=== PATIENT | male | born 1950 | race Caucasian/White ===

== ENCOUNTER → 2017-02-19 | Outpatient (CLI) | payer OTHER, MEDICAID | LOC: BHFA 09:00 | PROVIDERS: ATTEND Internal Medicine | DX: R06.00 Dyspnea, unspecified (principal); G47.30 Sleep apnea, unspecified ==

== ENCOUNTER → 2017-03-15 | Outpatient (CLI) | payer OTHER, MEDICAID ==
[~2017-03-15] MED LIST: REGADENOSON 0.4 MG/5 ML SYR IVP ONE
--- NOTE | 2017-03-15 16:41 | PDCARST ---
CAR Stress Test Results Type of Stress Test: Lexiscan stress test Indication: dyspnea on exertion Description of Procedure: After informed consent was obtained, pt was established to ECG, blood pressure, HR and oximetry monitoring. STRESS EKG AND HEMODYNAMIC DATA. Resting heart rate: 139 BPM. Resting ECG: AF RVR. Resting blood pressure: 140/80 mmHg. O2 saturation at rest: 92. Peak heart rate: 164 BPM. Peak blood pressure: 152/90 mmHg. Arrhythmias: AF RVR throughout. Symptoms: The patient experienced no typical symptoms of angina during stress or recovery. Stress/Infusion ECG: No change in rhythm with no significant ST/T wave changes. Stress/infusion O2 saturation: 96 Impression: 1) AF RVR in setting of holding BB > 24 hours. 2) pt declines admission for rate control Conclusion: 1) pt instructed to go home and take his Metoprolol succinate 100 mg at once. 2) await nuclear images
== END ==
LOC: FIMAGING 11:21
PROVIDERS: ATTEND Internal Medicine
DX: R06.00 Dyspnea, unspecified (principal); G47.30 Sleep apnea, unspecified
CPT/HCPCS: 78452; A9500; J2785

== ENCOUNTER 2017-05-03 21:07 | Inpatient (IN) | payer OTHER, MEDICAID ==
[2017-05-03] MEDS ORDERED: ONDANSETRON 4 MG/2 ML VIAL IVP ONE (21:43)
--- NOTE | 2017-05-03 21:45 | EDPHY ---
General - History Smoking Status: Never smoked Narrative: CHIEF COMPLAINT: Left leg pain HISTORY OF PRESENT ILLNESS: Patient complains of 3 days history of left lower leg pain. This started in the jolley and has spread significantly. It was mild at 1st. Now severe. Difficulty ambulating. Significant pressure. No numbness or tingling. No fever chills. No generalized malaise. No trauma or injury. He does take Coumadin from diagnosis of atrial fibrillation. He has got no bleeding from any site. No recent travel, trauma or surgery. No chest pain. No shortness of breath. No other associated complaints or modifying factors. REVIEW OF SYSTEMS: Ten systems reviewed and are negative unless otherwise noted in the HPI PCP: Dr. Moore SPECIALISTS: Dr. Lopez, cardiology PAST MEDICAL HISTORY: Diabetes insulin-dependent, hypertension, AFib, gout SOCIAL HISTORY: Nonsmoker. No alcohol or drug use. FAMILY HISTORY: Noncontributory EXAMINATION General Appearance: Alert, no distress Head: normocephalic, atraumatic Eyes: Pupils equal and round, no conjunctival pallor or injection ENT, Mouth: Mucous membranes moist Neck: Normal inspection, supple, non-tender Respiratory: Lungs are clear to auscultation. No wheezing, rhonchi or crackles Cardiovascular: Regular rate and rhythm. No murmur. Right DP pulses 2+. Left DP pulse 1 +. PT pulses symmetric. Gastrointestinal: Obese abdomen is soft and nondistended. Nontender. Neurological: A&O, nonfocal, normal light sensation on the top of the left foot. Strength is symmetric in the ankles and feet. Skin: Warm and dry. Significant cellulitis the left anterior jolley. There is some petechiae and purpura. No necrosis. No subcutaneous emphysema. Extremities: Significant tenderness of the left anterior jolley and lateral leg. No calcaneus tenderness. Range of motion is intact but painful. There is moderate edema to the left lower leg. Psychiatric: Mood and affect normal DIFFERENTIAL DIAGNOSES: Including but not limited to DVT, cellulitis, compartment syndrome, osteomyelitis, PVD MDM: 9:44 p.m. Left lower leg pain of 3 days duration. Examination suggest DVT versus cellulitis. Left DP pulses slightly less on the right but it is palpable. The foot is warm to the touch and not all cold. No paresthesia or anesthesia. No evidence of compartment syndrome. Laboratory studies ordered. Pain medicine ordered. Ultrasound ordered. X-ray ordered. He does not meet SIRS criteria. He is in pain but in no acute distress. 10:45 p.m. Laboratory studies revealed leukocytosis with elevated CRP. Mild electrolyte abnormalities. Blood glucose is elevated greater than 200. The unofficial interpretation from the Doppler studies negative for DVT and suggest cellulitis. The official interpretation is pending. Given the extensiveness of this, his pain control and his resources, the patient will need inpatient treatment for this. He is agreeable to this. Hospitalist has been paged. 11:01 p.m. Contacted by radiologist Dr. Beltran. No DVT on the ultrasound. There is left inguinal lymphadenopathy and lower extremity edema. 11:05 p.m. Case discussed with hospitalist Dr. Nolasco. He will admit the patient to his service. The patient is admitted to inpatient status to a floor bed. I discussed this with the patient and he is agreeable with stain. I informed him that we have ordered IV vancomycin. His pain has never improved, thus I have ordered IV Dilaudid. Vital signs remained stable. Admitted stable condition (Gelacio Reynoso) I have evaluated and participated in the management of this patient. My co- signature indicates that I have reviewed this chart and that I agree with the findings and the plan of care as documented. My personal history and physical findings include: 66-year-old male with history of diabetes. Patient reports 3 days of left leg pain and swelling. He has not been aware of fever. On examination lungs are clear, heart is regular. Abdomen is obese, soft and nontender. Left lower extremity with tenderness, edema, warmth, and erythema that extends along the anterolateral lower leg. There is also ecchymosis along the lateral left jolley. He has full active range of motion of this leg but it is painful for him to range his knee and ankle. Dorsalis pedis pulses are 1+ bilaterally. Physical findings are consistent with cellulitis. I do not suspect a deeper infection such as abscess or necrotizing fasciitis. Plain films do not suggest osteomyelitis. He is not febrile or otherwise ill appearing. I do not suspect vascular obstruction. He does have signs of chronic venous stasis in both lower extremities. He has been unable to adequately care for himself at home due to leg pain making it difficult for him to walk. He will be admitted for IV antibiotics. (Jessica Callejas) - Objective Vital Signs: Initial Vital Signs Temperature (C) 36.4 C 05/03/17 21:10 Heart Rate 70 05/03/17 21:10 Respiratory Rate 20 05/03/17 21:10 Blood Pressure 152/91 H 05/03/17 21:10 O2 Sat (%) 93 05/03/17 21:10 O2 Delivery Mode Room Air Allergies/Adverse Reactions: No Known Allergies Allergy (Verified 05/03/17 21:13) Home Medications: Medication Instructions Recorded Febuxostat [ULORIC] 40 mg PO DAILY@182901/02/15 Linagliptin [Tradjenta] 5 mg PO DAILY@182901/02/15 glipiZIDE [Glucotrol 5 mg] 10 mg PO BIDMEAL 01/02/15 Tamsulosin HCl [Flomax 0.4 MG (*)] 0.4 mg PO DAILY@182905/21/16 FENOFIBRATE 160 mg PO DAILY@182911/22/16 LORazepam [Ativan (*)] 1 mg PO HS PRN 11/22/16 Aspirin [Aspirin 325 mg (*)] 325 mg PO DAILY@182905/04/17 Atorvastatin Calcium [Lipitor 10 10 mg PO DAILY@182905/04/17 mg (*)] Fluocinonide 0.05% [Lidex 0.05% 1 kristi TP DAILY@182905/04/17 Cream (RX)] Metoprolol Succinate Xr [Toprol Xl 100 mg PO DAILY@182905/04/17 100 mg (*)] Potassium Cl [Klor-Con] 10 meq PO DAILY@182905/04/17 Warfarin Sodium [Coumadin 2.5MG 2.5 mg PO Q2D@182905/04/17 (*)] Warfarin Sodium [Coumadin 5MG (*)] 5 mg PO Q2D@182905/04/17 amLODIPine BESYLATE [Norvasc 5 mg 5 mg PO DAILY@182905/04/17 (*)] predniSONE 20 mg PO DAILY PRN 05/04/17 Laboratory Results: Laboratory Results 05/03/17 21:35 05/03/17 21:35 Medications Given: Acetaminophen (Tylenol) 650 mg PO Q4HRS PRN PRN Reason: Pain, Mild/Fever, Can Take PO Stop: 10/30/17 23:06 Last Admin: 05/05/17 08:02 Dose: 650 mg Amlodipine Besylate (Norvasc) 5 mg PO DAILY@1829 [facility] Stop: 10/31/17 18:29 Last Admin: 05/04/17 19:47 Dose: 5 mg Aspirin (Aspirin) 325 mg PO DAILY@1829 [facility] Stop: 10/31/17 18:29 Last Admin: 05/04/17 19:46 Dose: 325 mg Atorvastatin Calcium (Lipitor) 10 mg PO DAILY@1829 [facility] Stop: 10/31/17 18:29 Last Admin: 05/04/17 19:47 Dose: 10 mg Fluocinonide (Lidex 0.05% Cream) 1 kristi TP DAILY@1829 [facility] Stop: 10/31/17 18:29 Last Admin: 05/04/17 19:48 Dose: Not Given Glipizide (Glucotrol) 10 mg PO BIDMEAL [facility] Stop: 10/31/17 17:59 Last Admin: 05/05/17 08:00 Dose: 10 mg Vancomycin HCl 1.5 gm/ (Dextrose) 250 mls @ 166.667 mls/hr IV Q12H [facility] Stop: 06/03/17 10:59 Last Admin: 05/04/17 23:53 Dose: 250 mls Lorazepam (Ativan) 1 mg PO HS PRN PRN Reason: Anxiety Stop: 10/31/17 13:37 Last Admin: 05/04/17 16:43 Dose: 1 mg Metoprolol Succinate (Toprol Xl) 100 mg PO DAILY@1829 [facility] Stop: 10/31/17 18:29 Last Admin: 05/04/17 19:47 Dose: 100 mg Miscellaneous Medication (Febuxostat [Uloric]) 40 mg PO DAILY@1829 [facility] Stop: 10/31/17 18:29 Last Admin: 05/04/17 19:49 Dose: Not Given Miscellaneous Medication (Linagliptin [Tradjenta]) 5 mg PO DAILY@1829 [facility] Stop: 10/31/17 18:29 Last Admin: 05/04/17 19:50 Dose: Not Given Miscellaneous Medication (Fenofibrate [Fenofibrate]) 160 mg PO DAILY@1829 [facility] Stop: 10/31/17 18:29 Last Admin: 05/04/17 19:50 Dose: Not Given Oxycodone HCl (Oxycodone Ir) 5 - 10 mg PO Q4HRS PRN PRN Reason: Pain, Severe Able to Take PO Stop: 05/14/17 03:34 Last Admin: 05/05/17 04:54 Dose: 10 mg Potassium Chloride (Klor-Con) 10 meq PO DAILY@1830 [facility] Stop: 10/31/17 18:29 Last Admin: 05/04/17 19:47 Dose: 10 meq Tamsulosin HCl (Flomax) 0.4 mg PO DAILY@183 [facility] Stop: 10/31/17 18:29 Last Admin: 05/04/17 19:48 Dose: 0.4 mg Warfarin Sodium (Coumadin) 2.5 mg PO Q2D@1829 [facility] Stop: 10/31/17 18:29 Last Admin: 05/04/17 19:46 Dose: 2.5 mg Discontinued Medications Enoxaparin Sodium (Lovenox) 40 mg SC DAILY [facility] Stop: 10/31/17 08:59 Last Admin: 05/04/17 08:54 Dose: Not Given Furosemide (Lasix Injection) 40 mg IVP ONCE ONE Stop: 05/04/17 20:01 Last Admin: 05/05/17 07:55 Dose: Not Given Hydromorphone HCl (Dilaudid) 1 mg IVP EDNOW ONE Stop: 05/03/17 23:06 Last Admin: 05/03/17 23:21 Dose: 1 mg Vancomycin/Sodium Chloride (Vancomycin 1 Gm (Premix)) 250 mls @ 250 mls/hr IV EDNOW ONE PRN Reason: Protocol Stop: 05/03/17 23:56 Last Admin: 05/03/17 23:19 Dose: 250 mls Sodium Chloride (Ns) 1,000 mls @ 250 mls/hr IV ONCE ONE Stop: 05/04/17 03:06 Last Admin: 05/04/17 00:52 Dose: 1,000 mls Influenza Virus Vaccine Quadrival (Fluarix Quad [id number]) 0.5 ml IM .ONCE ONE Stop: 05/04/17 08:41 Last Admin: 05/04/17 09:44 Dose: 0.5 ml Insulin Human Lispro (Humalog Lispro) 0 unit SC TIDMEAL [facility] PRN Reason: Protocol Stop: 10/31/17 07:59 Last Admin: 05/04/17 15:02 Dose: Not Given Morphine Sulfate (Morphine) 6 mg IVP EDNOW ONE Stop: 05/03/17 21:44 Last Admin: 05/03/17 21:48 Dose: 6 mg Ondansetron HCl (Zofran) 4 mg IVP EDNOW ONE Stop: 05/03/17 21:44 Last Admin: 05/03/17 21:48 Dose: 4 mg Potassium Chloride (Klor-Con) 60 meq PO ONCE ONE Stop: 05/04/17 03:14 Last Admin: 05/04/17 03:22 Dose: 60 meq Departure - Departure Disposition: [facility] Inpatient Acute Clinical Impression: Cellulitis of left lower leg Condition: Good
[2017-05-03 21:55] LABS: % IMMATURE GRANULYOCYTES 0.7 % (0.0-1.1); ABSOLUTE IMMATURE GRANULOCYTES 0.09 10^3/uL (0.00-0.10); ADD DIFF? NO; ADD MORPH? NO; ADD SCAN? NO; ATYPICAL LYMPHOCYTE FLAG 0 (0-99); FRAGMENT RBC FLAG 0 (0-99); HEMATOCRIT 49.9 % (40.0-51.0); HEMOGLOBIN 17.4 g/dL (13.7-17.5); LEFT SHIFT FLG 10 (0-99); LIPEMIA HEMOLYSIS FLAG 90 (0-99); MEAN CELL HEMOGLOBIN 30.3 pg (27.9-34.1); MEAN CELL HEMOGLOBIN CONCENTR. 34.9 g/dL (32.4-36.7); MEAN CELL VOLUME 86.9 fL (81.5-99.8); MEAN PLATELET VOLUME 9.7 fL (8.7-11.7); PLATELET CLUMPS FLAG 10 (0-99); PLATELET COUNT 289 10^3/uL (150-400); RED BLOOD CELL COUNT 5.74 10^6/uL (4.40-6.38); RED CELL DISTRIBUTION WIDTH 14.7 % (11.5-15.2)
[2017-05-03 22:02] LABS: ANION GAP 11 mEq/L (8-16); C-REACTIVE PROTEIN 67.7 mg/L (<10.0); CALCIUM 9.4 mg/dL (8.5-10.4); CARBON DIOXIDE 27 mEq/l (22-31); CHLORIDE 89 mEq/L (97-110); CREATININE 1.3 mg/dL (0.7-1.3); GLOMERULAR FILTRATION RATE 55; GLUCOSE 213 mg/dL (70-100); POTASSIUM 3.3 mEq/L (3.5-5.2); SODIUM 127 mEq/L (134-144)
[2017-05-03 22:17] LABS: SEDIMENTATION RATE 7 MM/HR (0-20)
[2017-05-03] MEDS ORDERED: VANCOMYCIN HCL/NORMAL SALINE 250 ML IV ONE (22:57)
[2017-05-03] MEDS ORDERED: HYDROmorphONE/DILAUDID 1 MG/ML INJ IVP ONE (23:05)
[2017-05-03] MEDS ORDERED: ONDANSETRON 4 MG/2 ML VIAL IVP PRN (23:07)
[2017-05-03] MEDS ORDERED: ONDANSETRON DISINTEGRATING 4 MG TAB PO PRN (23:07)
[2017-05-03] MEDS ORDERED: NS 1,000 ML IV ONE (23:07)
[2017-05-04] MEDS ORDERED: D50W 25 GM/50 ML VIAL IVP PRN (00:05)
[2017-05-04] MEDS ORDERED: PARAMETERS MISC PRN (00:05)
--- NOTE | 2017-05-04 01:37 | PDGENHP ---
History and Physical - Chief Complaint Leg pain - History of Present Illness 66 yo M w/ obesity, AF, HTN, gout, DM2 presents with leg pain. Patient reports he first noticed left leg redness about three days ago. This progressed and the redness moved up his leg so he decided to come to the emergency room. This is his first diabetic foot infection; he tries to take good care of his feet. However, he has not checked his blood sugar in several weeks. His last A1c in our system was 7.4 in November. He denies fevers, chills currently. History Information - Allergies/Home Medication List Allergies/Adverse Reactions: No Known Allergies Allergy (Verified 05/03/17 21:13) Home Medications: Febuxostat [ULORIC] 40 mg PO DAILY 01/02/15 [Last Taken 11/19/16] Linagliptin [Tradjenta] 5 mg PO DAILY 01/02/15 [Last Taken 11/21/16] glipiZIDE [Glucotrol 5 mg] 10 mg PO BID 01/02/15 [Last Taken 11/19/16] Tamsulosin HCl [Flomax 0.4 MG (*)] 0.4 mg PO HS 05/21/16 [Last Taken 05/21/16] Atorvastatin Calcium [Lipitor 40 mg (*)] 40 mg PO HS 11/22/16 [Last Taken ] FENOFIBRATE 160 mg PO DAILY 11/22/16 [Last Taken 11/19/16] LORazepam [Ativan (*)] 1 mg PO HS PRN 11/22/16 [Last Taken Unknown] METOPROLOL SUCCINATE 100 mg PO DAILY 11/22/16 [Last Taken 11/19/16] Potassium Chloride 10 meq PO DAILY 11/22/16 [Last Taken 11/22/16] I have personally reviewed and updated: family history, medical history - Past Medical History diabetes type 2, hypertension, hyperlipidemia Additional medical history: BPH. chronic pain/continuous opiate use and dependency. gout - Surgical History Reports: no pertinent surgical hx - Family History Positive for: CAD (father with a fib and cad) - Social History Smoking Status: Never smoked Additional social history: lives alone, unemployed, has brother at bedside involved in his care Review of Systems Review of Systems: ROS: 10pt was reviewed & negative except for what was stated in HPI & below Physical Exam Physical Exam: Temp Pulse Resp BP Pulse Ox 36.4 C 55 L 16 112/57 L 95 05/03/17 21:10 05/03/17 23:23 05/03/17 23:23 05/03/17 23:23 05/03/17 23:23 Constitutional: no apparent distress, obese Eyes: PERRL, EOMI Ears, Nose, Mouth, Throat: moist mucous membranes, no oral mucosal ulcers Cardiovascular: regular rate and rhythym, no murmur, rub, or gallop Respiratory: no respiratory distress, no rales or rhonchi Gastrointestinal: normoactive bowel sounds, soft, non-tender abdomen Skin: warm, other (Erythema and warmth extending up LLE to upper jolley; small ulceration dorsal aspect L 2nd toe) Musculoskeletal: full muscle strength, no muscle tenderness Neurologic: AAOx3, CN II-XII Intact Psychiatric: interacting appropriately, not anxious Lab Data & Imaging Review 05/03/17 21:35 05/03/17 21:35 WBC 13.23 10^3/uL (3.80-9.50) H 05/03/17 21:35 RBC 5.74 10^6/uL (4.40-6.38) 05/03/17 21:35 Hgb 17.4 g/dL (13.7-17.5) 05/03/17 21:35 Hct 49.9 % (40.0-51.0) 05/03/17 21:35 MCV 86.9 fL (81.5-99.8) 05/03/17 21:35 MCH 30.3 pg (27.9-34.1) 05/03/17 21:35 MCHC 34.9 g/dL (32.4-36.7) 05/03/17 21:35 RDW 14.7 % (11.5-15.2) 05/03/17 21:35 Plt Count 289 10^3/uL (150-400) 05/03/17 21:35 MPV 9.7 fL (8.7-11.7) 05/03/17 21:35 Neut % (Auto) 72.0 % (39.3-74.2) 05/03/17 21:35 Lymph % (Auto) 15.0 % (15.0-45.0) 05/03/17 21:35 [place] % (Auto) 10.9 % (4.5-13.0) 05/03/17 21:35 Eos % (Auto) 0.9 % (0.6-7.6) 05/03/17 21:35 Baso % (Auto) 0.5 % (0.3-1.7) 05/03/17 21:35 Nucleat RBC Rel Count 0.0 % (0.0-0.2) 05/03/17 21:35 Absolute Neuts (auto) 9.54 10^3/uL (1.70-6.50) H 05/03/17 21:35 Absolute Lymphs (auto) 1.98 10^3/uL (1.00-3.00) 05/03/17 21:35 Absolute Monos (auto) 1.44 10^3/uL (0.30-0.80) H 05/03/17 21:35 Absolute Eos (auto) 0.12 10^3/uL (0.03-0.40) 05/03/17 21:35 Absolute Basos (auto) 0.06 10^3/uL (0.02-0.10) 05/03/17 21:35 Absolute Nucleated RBC 0.00 10^3/uL (0-0.01) 05/03/17 21:35 Immature Gran % 0.7 % (0.0-1.1) 05/03/17 21:35 Immature Gran # 0.09 10^3/uL (0.00-0.10) 05/03/17 21:35 ESR 7 MM/HR (0-20) 05/03/17 21:35 Sodium 127 mEq/L (134-144) L 05/03/17 21:35 Potassium 3.3 mEq/L (3.5-5.2) L 05/03/17 21:35 Chloride 89 mEq/L (97-110) L 05/03/17 21:35 Carbon Dioxide 27 mEq/l (22-31) 05/03/17 21:35 Anion Gap 11 mEq/L (8-16) 05/03/17 21:35 BUN 25 mg/dL (7-23) H 05/03/17 21:35 Creatinine 1.3 mg/dL (0.7-1.3) 05/03/17 21:35 Estimated GFR 55 05/03/17 21:35 Glucose 213 mg/dL (70-100) H 05/03/17 21:35 Calcium 9.4 mg/dL (8.5-10.4) 05/03/17 21:35 C-Reactive Protein 67.7 mg/L (<10.0) H 05/03/17 21:35 Imaging Review: XR LLE without evidence of OM. Assessment & Plan Assessment: 66 yo M w/ DM, HTN, gout, and obesity presents with LLE cellulitis. Plan: 1. LLE cellulitis - WBC 13 but no evidence of sepsis; XR without evidence of OM. This is patient's first diabetic foot infection. I suspect small ulceration on dorsal aspect of 2nd toe may have been entry point for infection. DVT U/S without evidence of clot. - Vancomycin IV for now, monitor for improvement 2. DM - Takes only oral agents as an outpatient. Last A1c in our system 7.4 in November. Will manage with SSI for now. 3. HTN - Takes metoprolol and amlodipine as an outpatient. 4. AF - On metoprolol and warfarin for anticoagulation. - Monitor daily INR while on antibiotics 5. Gout - Takes febuxostat; no evidence of acute flair 6. Obesity - BMI 40; takes statin daily. Diet - Regular Code - Full Ppx - LMWH Dispo - Admit to observation status
[2017-05-04] MEDS ORDERED: POTASSIUM CL 20 MEQ TAB PO ONE (03:13)
[2017-05-04] MEDS: ACETAMINOPHEN 325 MG TAB PO PRN (03:26)
[2017-05-04] MEDS: oxyCODONE IR 5 MG TAB PO PRN ×4 (04:56→19:45)
[2017-05-04 05:54] LABS: % IMMATURE GRANULYOCYTES 0.9 % (0.0-1.1); ADD DIFF? NO; ADD MORPH? NO; ADD SCAN? NO; ATYPICAL LYMPHOCYTE FLAG 0 (0-99); FRAGMENT RBC FLAG 0 (0-99); HEMATOCRIT 48.1 % (40.0-51.0); HEMOGLOBIN 16.2 g/dL (13.7-17.5); LEFT SHIFT FLG 0 (0-99); LIPEMIA HEMOLYSIS FLAG 80 (0-99); MEAN CELL HEMOGLOBIN 30.5 pg (27.9-34.1); MEAN CELL HEMOGLOBIN CONCENTR. 33.7 g/dL (32.4-36.7); MEAN CELL VOLUME 90.4 fL (81.5-99.8); PLATELET CLUMPS FLAG 0 (0-99); PLATELET COUNT 230 10^3/uL (150-400); RED BLOOD CELL COUNT 5.32 10^6/uL (4.40-6.38); RED CELL DISTRIBUTION WIDTH 15.3 % (11.5-15.2)
[2017-05-04 06:10] LABS: ANION GAP 11 mEq/L (8-16); CALCIUM 8.9 mg/dL (8.5-10.4); CARBON DIOXIDE 32 mEq/l (22-31); CHLORIDE 92 mEq/L (97-110); CREATININE 1.4 mg/dL (0.7-1.3); GLOMERULAR FILTRATION RATE 51; GLUCOSE 155 mg/dL (70-100); POTASSIUM 4.1 mEq/L (3.5-5.2); SODIUM 135 mEq/L (134-144)
[2017-05-04 06:22] LABS: INR 2.85 (0.83-1.16); PROTIME(PATIENT) 30.3 SEC (12.0-15.0)
[2017-05-04] MEDS: INSULIN LISPRO 100 UNIT/ML SC SCH ×2 (08:30→15:02)
[2017-05-04] MEDS ORDERED: FLU VACC QS 2017-18 (3YR+)/PF 0.5 ML SYR (FLUARIX QUAD) IM ONE (08:40)
[2017-05-04] MEDS ORDERED: ENOXAPARIN 40 MG/0.4 ML SYR SC SCH (09:00)
--- NOTE | 2017-05-04 10:31 | ASMTCASEMG ---
Living Arrangements What is your living Answers: Alone arrangement? Who do you live with? Type Of Residence What kind of residence do Answers: House you live in? Discharge Plan Comments Coordination Status Comments Notes: Patient is a 66yo single male with diabetes experiencing his first diabetic foot infection. Patient normally takes good care of his feet but has not checked his blood sugar in several weeks. No therapies have been ordered yet. Patient is single and lives alone. D/C needs unclear at this time. CM will follow. Date Signed: 05/04/2017 10:31 AM Electronically Signed By:Sneahl Ordaz LCSW
[2017-05-04] MEDS: VANCOMYCIN 1.5 GM in D5W 250 ML IV SCH ×2 (11:44→23:53)
[2017-05-04] MEDS ORDERED: predniSONE 20 MG TAB PO PRN (13:38)
--- NOTE | 2017-05-04 14:13 | HOSPPROG ---
Hospitalist Progress Note Assessment/Plan: DIAGNOSES: -left leg pain with erythema, significant ecchymoses, increased edema: There is stasis dermatitis, there is probably some cellulitis, but there is also a lot of deep soft tissue edema and tenderness and significant ecchymoses raising question of deep soft tissue infection or other process. Ultrasound negative for clot so doubt phlegmasia cerulea dulens. No palpable abscess, nothing overtly necrotic visible from the surface. Would be concerned about possible myositis or other significant deep soft tissue process and will need to assess for that starting with imaging studies -chronic bilateral leg edema and stasis pigmentation suspect this is due to pulmonary hypertension from his obesity, pulmonary pressures not mentioned on echo 6 months ago -diabetes mellitus type 2 -chronic gout, stable at this time on meds -chronic AFib, rate controlled and on anticoagulant with good INR -chronic kidney disease is pretty much at his baseline of 1.2-1.4; estimated GFR 50 PLANS: -continue current antibiotics with cultures pending -MRI of his leg today -elevation of legs, low-salt diet, and will begin diuresis with Lasix SUBJECTIVE: Ongoing pain in left calf ankle and foot No other symptoms OBJECTIVE Vitals reviewed: So far stable without fever Exam: alert oriented looks fairly uncomfortable skin warm dry color ok resps not labored lungs clear BSs heart regular abd soft nondistended nontender, bowel sounds present limbs right leg has some pitting edema from the knee down to the distal foot with some mild stasis pigmentation in the mid calf but nothing acute; left leg with much more significant edema from the knee down to the distal foot, with some acute stasis dermatitis and symptom acute acute appearing confluent erythema on the lateral aspect of the ankle and the dorsum of the foot suggesting possible cellulitis, and there is significant deep appearing ecchymosis along the lateral aspect of the calf top to bottom as well is in toes 2 through 4. There is severe tenderness in the calf soft tissues no definite fluctuance but this is a very edematous leg and deep fluctuance could be missed. There is nothing overtly necrotic visible externally. iv site ok Creatinine up slightly to 1.4 otherwise lab stable; on review of his lab draws over the past couple of years his baseline is 1.2-1.4 Objective: Vital Signs Temp Pulse Resp BP Pulse Ox 36.8 C 56 L 16 117/85 H 92 05/04/17 11:49 05/04/17 11:49 05/04/17 11:49 05/04/17 11:49 05/04/17 11:49 Laboratory Results 05/04/17 04:45 05/04/17 04:45 05/03/17 05/04/17 05/05/17 06:59 06:59 06:59 Intake Total 1200 Output Total 850 Balance 350 PT 30.3 SEC (12.0-15.0) H 05/04/17 04:45 INR 2.85 (0.83-1.16) H 05/04/17 04:45 - Time Spent With Patient Time Spent with Patient: greater than 35 minutes Time Spent with Patient: Greater than 35 minutes spent on this patients care, greater than 50% of time spent counseling, educating, and coordinating care regarding the above mentioned plan. ICD10 Worksheet Patient Problems: Problems Problem Status Onset Cellulitis of left lower leg Acute Atrial fibrillation Acute Dehydration Acute Elevated troponin Acute Hyponatremia Acute Renal failure Acute
[2017-05-04] MEDS ORDERED: FUROSEMIDE 40 MG/4 ML VIAL IVP ONE ×2 (14:25→20:00)
[2017-05-04] MEDS: LORazepam 1 MG TAB PO PRN (16:43)
[2017-05-04] MEDS ORDERED: GADOBUTROL 10 ML VIAL IVP ONE ×2 (16:54→18:14)
[2017-05-04] MEDS ORDERED: NON-FORMULARY NEW DRUG (Linagliptin [Tradjenta] 5 MG) PO SCH (18:30)
[2017-05-04] MEDS ORDERED: NON-FORMULARY NEW DRUG (Fenofibrate [Fenofibrate] 160 MG) PO SCH (18:30)
[2017-05-04] MEDS ORDERED: WARFARIN SODIUM 2.5 MG TAB PO SCH (18:30)
[2017-05-04] MEDS: glipiZIDE 5 MG TAB PO SCH (19:46)
[2017-05-04] MEDS: ASPIRIN 325 MG TAB PO SCH (19:46)
[2017-05-04] MEDS: amLODIPine BESYLATE 5 MG TAB PO SCH (19:47)
[2017-05-04] MEDS: POTASSIUM CL 10 MEQ TAB PO SCH (19:47)
[2017-05-04] MEDS: METOPROLOL SUCCINATE XR 100 MG TAB PO SCH (19:47)
[2017-05-04] MEDS: ATORVASTATIN CALCIUM 10 MG TAB PO SCH (19:47)
[2017-05-04] MEDS: FLUOCINONIDE 0.05% 15 GM CREAM TP SCH (19:48)
[2017-05-04] MEDS: TAMSULOSIN HCL 0.4 MG CAP PO SCH (19:48)
[2017-05-04] MEDS: NON-FORMULARY NEW DRUG (Febuxostat [Uloric] 40 MG) PO SCH (19:49)
[2017-05-04] MEDS: FENOFIBRATE 160 MG PO SCH (19:50)
[2017-05-04] MEDS: (Linagliptin [Tradjenta] 5 MG) PO SCH (19:50)
[2017-05-05] MEDS: oxyCODONE IR 5 MG TAB PO PRN ×5 (04:54→23:17)
[2017-05-05 05:54] LABS: % IMMATURE GRANULYOCYTES 0.7 % (0.0-1.1); ABSOLUTE IMMATURE GRANULOCYTES 0.08 10^3/uL (0.00-0.10); ADD DIFF? NO; ADD MORPH? NO; ADD SCAN? NO; ATYPICAL LYMPHOCYTE FLAG 0 (0-99); FRAGMENT RBC FLAG 0 (0-99); HEMATOCRIT 47.8 % (40.0-51.0); HEMOGLOBIN 15.8 g/dL (13.7-17.5); LEFT SHIFT FLG 0 (0-99); LIPEMIA HEMOLYSIS FLAG 80 (0-99); MEAN CELL HEMOGLOBIN 30.7 pg (27.9-34.1); MEAN CELL HEMOGLOBIN CONCENTR. 33.1 g/dL (32.4-36.7); MEAN PLATELET VOLUME 9.3 fL (8.7-11.7); PLATELET CLUMPS FLAG 0 (0-99); PLATELET COUNT 246 10^3/uL (150-400); RED BLOOD CELL COUNT 5.14 10^6/uL (4.40-6.38); RED CELL DISTRIBUTION WIDTH 15.2 % (11.5-15.2)
[2017-05-05 06:00] LABS: INR 3.02 (0.83-1.16); PROTIME(PATIENT) 31.7 SEC (12.0-15.0)
[2017-05-05] MEDS: glipiZIDE 5 MG TAB PO SCH ×2 (08:00→17:35)
[2017-05-05] MEDS: ACETAMINOPHEN 325 MG TAB PO PRN ×4 (08:02→23:17)
--- NOTE | 2017-05-05 08:48 | PDMN ---
Medical Necessity Medical necessity: Change to IP, as of 05/05/17, per MD; los >2 mn for ongoing management/tx of L leg pain w/erythema, significant ecchymosis & increased edema ; admit for ongoing inpt care, IV abx & Lasix; comorbid chronic bilateral leg edema & stasis pigmentation r/t pulmonary htn, DM, AFIB, CKD; per progress note & order 05/05/17
[2017-05-05] MEDS: VANCOMYCIN 1.5 GM in D5W 250 ML IV SCH ×2 (12:12→23:14)
[2017-05-05] MEDS ORDERED: POLYETHYLENE GLYCOL 3350 17 GM PKT PO PRN (17:06)
[2017-05-05] MEDS ORDERED: BISACODYL 10 MG SUPP PR PRN (17:06)
[2017-05-05] MEDS ORDERED: MAGNESIUM HYDROXIDE 30 ML UDCUP PO PRN (17:06)
[2017-05-05] MEDS ORDERED: LACTULOSE 20 GM/30 ML UDCUP PO PRN (17:06)
[2017-05-05] MEDS ORDERED: WARFARIN SODIUM 2.5 MG TAB PO ONE ×2 (17:30→18:30)
[2017-05-05] MEDS: amLODIPine BESYLATE 5 MG TAB PO SCH (17:35)
[2017-05-05] MEDS: POTASSIUM CL 10 MEQ TAB PO SCH (17:35)
[2017-05-05] MEDS: ATORVASTATIN CALCIUM 10 MG TAB PO SCH (17:35)
[2017-05-05] MEDS: METOPROLOL SUCCINATE XR 100 MG TAB PO SCH (17:35)
[2017-05-05] MEDS: ASPIRIN 325 MG TAB PO SCH (17:35)
[2017-05-05] MEDS: TAMSULOSIN HCL 0.4 MG CAP PO SCH (17:36)
[2017-05-05] MEDS: NON-FORMULARY NEW DRUG (Febuxostat [Uloric] 40 MG) PO SCH (17:39)
[2017-05-05] MEDS: FENOFIBRATE 160 MG PO SCH (17:40)
[2017-05-05] MEDS: FLUOCINONIDE 0.05% 15 GM CREAM TP SCH (17:40)
[2017-05-05] MEDS: (Linagliptin [Tradjenta] 5 MG) PO SCH (17:41)
--- NOTE | 2017-05-05 17:43 | HOSPPROG ---
Hospitalist Progress Note Assessment/Plan: DIAGNOSES: -acute myositis and cellulitis of left leg without evidence of abscess or osteomyelitis, diabetic foot infection -chronic bilateral leg edema and stasis pigmentation suspect this is due to pulmonary hypertension from his obesity, pulmonary pressures not mentioned on echo 6 months ago -diabetes mellitus type 2 -chronic gout, stable at this time on meds -chronic AFib, rate controlled and on anticoagulant with good INR -chronic kidney disease is pretty much at his baseline of 1.2-1.4; estimated GFR 50 PLANS: -continue current antibiotics -elevation of legs, low-salt diet, and will begin diuresis with Lasix -follow renal function closely as he is diabetic nephropathy and is on vancomycin -if renal function remains stable will begin some diuresis to try to speed recovery from his infection -INR has increased to 3 and will decrease his Coumadin dose slightly and follow closely SUBJECTIVE: Ongoing pain in left calf ankle and foot really unchanged from yesterday No other symptoms OBJECTIVE Vitals reviewed: So far stable without fever Exam: alert oriented looks fairly uncomfortable skin warm dry color ok resps not labored lungs clear BSs heart regular abd soft nondistended nontender, bowel sounds present limbs right leg has some pitting edema from the knee down to the distal foot with some mild stasis pigmentation in the mid calf but nothing acute; left leg with much more significant edema from the knee down to the distal foot, with some acute stasis dermatitis and symptom acute acute appearing confluent erythema on the lateral aspect of the ankle and the dorsum of the foot suggesting possible cellulitis, and there is significant deep appearing ecchymosis along the lateral aspect of the calf top to bottom as well is in toes 2 through 4. There is severe tenderness in the calf soft tissues no definite fluctuance but this is a very edematous leg and deep fluctuance could be missed. There is nothing overtly necrotic visible externally. iv site ok Objective: Vital Signs Temp Pulse Resp BP Pulse Ox 36.6 C 67 20 153/80 H 91 L 05/05/17 16:00 05/05/17 17:35 05/05/17 16:00 05/05/17 17:35 05/05/17 16:00 Laboratory Results 05/05/17 05:20 05/04/17 05/05/17 05/06/17 06:59 06:59 06:59 Intake Total 550 Output Total 350 Balance 200 PT 31.7 SEC (12.0-15.0) H 05/05/17 05:20 INR 3.02 (0.83-1.16) H 05/05/17 05:20 ICD10 Worksheet Patient Problems: Problems Problem Status Onset Cellulitis of left lower leg Acute Atrial fibrillation Acute Dehydration Acute Elevated troponin Acute Hyponatremia Acute Renal failure Acute
[2017-05-05] MEDS ORDERED: WARFARIN SODIUM 5 MG TAB PO SCH (18:30)
[2017-05-05] MEDS: MELATONIN 3 MG TAB PO SCH (20:50)
[2017-05-05] MEDS: SENNOSIDES/DOCUSATE SODIUM TAB PO SCH (20:50)
[2017-05-05] MEDS: traZODone 50 MG TAB PO SCH (20:50)
[2017-05-06] MEDS: LORazepam 1 MG TAB PO PRN (04:23)
[2017-05-06 06:00] LABS: % IMMATURE GRANULYOCYTES 0.5 % (0.0-1.1); ABSOLUTE IMMATURE GRANULOCYTES 0.05 10^3/uL (0.00-0.10); ADD DIFF? NO; ADD MORPH? NO; ADD SCAN? NO; ATYPICAL LYMPHOCYTE FLAG 0 (0-99); FRAGMENT RBC FLAG 0 (0-99); HEMATOCRIT 43.5 % (40.0-51.0); HEMOGLOBIN 14.8 g/dL (13.7-17.5); LEFT SHIFT FLG 0 (0-99); LIPEMIA HEMOLYSIS FLAG 90 (0-99); MEAN CELL HEMOGLOBIN 30.8 pg (27.9-34.1); MEAN CELL VOLUME 90.4 fL (81.5-99.8); MEAN PLATELET VOLUME 9.1 fL (8.7-11.7); PLATELET CLUMPS FLAG 10 (0-99); PLATELET COUNT 230 10^3/uL (150-400); RED BLOOD CELL COUNT 4.81 10^6/uL (4.40-6.38); RED CELL DISTRIBUTION WIDTH 14.6 % (11.5-15.2)
[2017-05-06 06:11] LABS: INR 2.54 (0.83-1.16); PROTIME(PATIENT) 27.3 SEC (12.0-15.0)
[2017-05-06 06:27] LABS: ANION GAP 9 mEq/L (8-16); CALCIUM 8.3 mg/dL (8.5-10.4); CARBON DIOXIDE 28 mEq/l (22-31); CHLORIDE 88 mEq/L (97-110); CREATININE 1.1 mg/dL (0.7-1.3); GLOMERULAR FILTRATION RATE > 60; GLUCOSE 145 mg/dL (70-100); SODIUM 125 mEq/L (134-144)
[2017-05-06] MEDS: SENNOSIDES/DOCUSATE SODIUM TAB PO SCH ×2 (08:04→20:48)
[2017-05-06] MEDS: oxyCODONE IR 5 MG TAB PO PRN ×3 (08:09→20:48)
[2017-05-06] MEDS: ACETAMINOPHEN 325 MG TAB PO PRN ×2 (08:09→20:47)
[2017-05-06] MEDS ORDERED: FUROSEMIDE 40 MG/4 ML VIAL IVP ONE (09:20)
--- NOTE | 2017-05-06 09:28 | HOSPPROG ---
Hospitalist Progress Note Assessment/Plan: DIAGNOSES: -acute myositis and cellulitis of left leg without evidence of abscess or osteomyelitis, diabetic foot infection -chronic bilateral leg edema and stasis pigmentation; some acute stasis dermatitis is also present in the left leg suspect this is due to pulmonary hypertension from his obesity, pulmonary pressures not mentioned on echo 6 months ago -diabetes mellitus type 2 sugar control is appropriate for the the acute hospital setting at this time -chronic gout, stable at this time on meds -chronic AFib, rate controlled and on anticoagulant with good INR -chronic kidney disease is pretty much at his baseline of 1.2-1.4; estimated GFR 50 PLANS: -continue current antibiotics -elevation of legs, low-salt diet, and will begin diuresis with Lasix -will start diuresing with Lasix today -INR now 2.5 will give 5 mg Coumadin today -he will be seen by infectious disease today and I will review with the cycle consultant after the visit with him SUBJECTIVE: Some decrease in pain symptoms so far today No chills or sweats OBJECTIVE Vitals reviewed: So far stable without fever Exam: alert oriented looks fairly uncomfortable skin warm dry color ok resps not labored lungs clear BSs heart regular abd soft nondistended nontender, bowel sounds present limbs right leg has some pitting edema from the knee down to the distal foot with some mild stasis pigmentation in the mid calf but nothing acute; left leg still with significant edema. There is a slight decrease in the appearance of cellulitis and a slight decrease in the overall tenderness. He still has some visible cellulitis, still has enough tenderness and no location consistent with ongoing myositis, and still has unchanged ecchymosis and acute on chronic stasis dermatitis iv site ok Lab data: Creatinine improved today at 1.1 White blood cell count still high but improving Objective: Vital Signs Temp Pulse Resp BP Pulse Ox 36.4 C 58 L 18 164/88 H 95 05/06/17 07:40 05/06/17 07:40 05/06/17 07:40 05/06/17 07:40 05/06/17 07:40 Laboratory Results 05/06/17 05:39 05/06/17 05:39 05/05/17 05/06/17 05/07/17 06:59 06:59 06:59 Intake Total 550 250 Output Total 350 Balance 200 250 PT 27.3 SEC (12.0-15.0) H 05/06/17 05:39 INR 2.54 (0.83-1.16) H 05/06/17 05:39 ICD10 Worksheet Patient Problems: Problems Problem Status Onset Cellulitis of left lower leg Acute Atrial fibrillation Acute Dehydration Acute Elevated troponin Acute Hyponatremia Acute Renal failure Acute
[2017-05-06] MEDS: VANCOMYCIN 1.5 GM in D5W 250 ML IV SCH (10:35)
[2017-05-06] MEDS: glipiZIDE 5 MG TAB PO SCH ×2 (13:50→20:59)
[2017-05-06] MEDS: cefTRIAXone 2 GM in D5W 50 ML IV SCH (14:30)
--- NOTE | 2017-05-06 15:47 | GCON ---
[f rep st] CONSULTATION INFECTIOUS DISEASE CONSULTATION. DATE OF CONSULTATION: 05/06/2017 REASON FOR CONSULTATION: Left lower extremity cellulitis and myositis. HISTORY OF PRESENT ILLNESS: A 66-year-old male with a history of insulin- dependent diabetes, obesity, atrial fibrillation, hypertension, presents with acute leg pain over a 3 day period that was progressive. He denies any associated fevers and chills. Patient presented to the emergency room 2016, and subsequently underwent a DVT study that showed no DVT, but lymphadenopathy in the groin 4.1 x 2.6 cm. Patient was empirically started on IV vancomycin in the emergency room. He subsequently underwent an MRI of his left lower extremity due to marked pain on exam at that time, which uncovered cellulitis and myositis of the tibialis anterior, inferior to the medial head of the gastrocnemius as well as severe cellulitis of the left foot. The patient was continued on IV vancomycin in the hospital. His initial white count was 13,000, is decreased to 10,000. He has been afebrile throughout his hospital course. Patient reports some improvement in his redness of his leg. He denies a specific trauma to his leg. He has had a chronic wound of his left 2nd toe for a long period of time. He reports his glucoses at home have been in the 110s and his hemoglobin A1c was 7.4 in November. PAST MEDICAL HISTORY: Insulin-dependent diabetes, hypertension, atrial fibrillation on Coumadin, gout, and renal insufficiency. PAST SURGICAL HISTORY: No pertinent surgical history. SOCIAL HISTORY: No tobacco. No alcohol. Patient is retired. 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 He has no children , no pets and no recent international travel. ALLERGIES: NKDA. FAMILY HISTORY: Negative for diabetes. He has a family history of peripheral vascular disease. No cancers. MEDICATIONS: Vancomycin 1.5 g IV q.12 with a vancomycin trough 05/05. He is also on Tylenol as needed, Norvasc 5 mg daily, aspirin 325 daily, Lipitor 10 mg daily, Lidex topically, glipizide 10 mg twice daily with meals, lactulose as needed, Ativan as needed, milk of magnesia as needed, melatonin at bedtime, metoprolol 100 mg daily, Zofran as needed, oxycodone as needed, MiraLAX as needed, prednisone 20 mg daily as needed for a gout attack. He is not currently taking that. Flomax 4.4 mg daily, trazodone 50 mg at bedtime, Coumadin alternating 2.5 and 5 mg. REVIEW OF SYSTEMS: A complete 10-point review of systems was performed and is negative except as mentioned in the HPI. PHYSICAL EXAM: VITAL SIGNS: Patient has been afebrile throughout his hospital course with a temp T current of 36.5, BP 138/69, HR 56, saturation 90% on room air. GENERAL: This is a very pleasant, obese male, sitting up in bed, in no acute distress with fluent speech. HEENT: Moist mucous membranes. Fair dentition. No oral ulcerations or exudate. Neck: Supple. CARDIOVASCULAR: Regular rate and rhythm with 2/6 systolic murmur. CHEST: Clear to auscultation bilaterally. ABDOMEN: Soft, nontender. EXTREMITIES: Patient had erythema over the dorsal aspect of his foot, lateral aspect of his calf, but not extending up into his thigh. It had a purplish coloration with some hemorrhagic component laterally. Minimal tenderness to palpation and no crepitus. Very faint dorsalis pedis pulses were palpated. Range of motion of knee and ankle were intact. NEUROLOGIC: He is alert and oriented x4. Moving all 4 extremities equally. LABORATORY: White count 13.2 on admission, 10.10 today. CRP 67, creatinine 1.1 with a peak of 1.4, hematocrit 43, platelets of 230. No blood cultures were obtained. ASSESSMENT AND PLAN: 66-year-old male with insulin-dependent diabetes, who presents with left lower extremity redness and pain and subsequently found to have cellulitis and myositis. Patient with a small wound on the left 2nd toe, likely portal of entry. Clinical appearance is most consistent with Streptococcus. Cannot completely include Staphylococcus. Patient without history of MRSA. Would recommend 1) discontinuation of vancomycin for multiple factors including underlying renal insufficiency, difficulty dosing and morbid obesity and no history of MRSA. 2) recommend ceftriaxone 2 g IV daily, selecting this over cefazolin with the hopes of transferring to outpatient therapy tomorrow if ongoing clinical improvement. Suspect patient will need 5-7 more days of IV antibiotics as an outpatient. Hopeful to be able to administer by peripheral IV, but will reassess tomorrow. 3) Discussed need for monitoring INR while on antibiotic therapy to avoid supratherapeutic levels. 4) Reviewed side effects and risks of antibiotics including C.diff. Time was 75 minutes, greater than 50% of time spent with education and counseling regarding diagnosis, pertinent organisms and plans for antibiotic changes and duration of therapy. Will continue to follow this patient on a daily basis. /[id number]/MODL MTDD
[2017-05-06 16:40] VITALS: RESP 18
[2017-05-06] MEDS ORDERED: WARFARIN SODIUM 5 MG TAB PO SCH (18:30)
[2017-05-06] MEDS: TAMSULOSIN HCL 0.4 MG CAP PO SCH (18:33)
[2017-05-06] MEDS: ASPIRIN 325 MG TAB PO SCH (18:35)
[2017-05-06] MEDS: METOPROLOL SUCCINATE XR 100 MG TAB PO SCH (18:35)
[2017-05-06] MEDS: POTASSIUM CL 10 MEQ TAB PO SCH (18:35)
[2017-05-06] MEDS: ATORVASTATIN CALCIUM 10 MG TAB PO SCH (18:36)
[2017-05-06] MEDS: amLODIPine BESYLATE 5 MG TAB PO SCH (18:36)
[2017-05-06] MEDS: NON-FORMULARY NEW DRUG (Febuxostat [Uloric] 40 MG) PO SCH (18:36)
[2017-05-06] MEDS: (Linagliptin [Tradjenta] 5 MG) PO SCH (18:37)
[2017-05-06] MEDS: FENOFIBRATE 160 MG PO SCH (18:37)
[2017-05-06] MEDS: FLUOCINONIDE 0.05% 15 GM CREAM TP SCH (18:37)
[2017-05-06] MEDS: MELATONIN 3 MG TAB PO SCH (20:48)
[2017-05-06] MEDS: traZODone 50 MG TAB PO SCH (20:48)
[2017-05-07 05:08] LABS: % IMMATURE GRANULYOCYTES 0.6 % (0.0-1.1); ABSOLUTE IMMATURE GRANULOCYTES 0.06 10^3/uL (0.00-0.10); ADD DIFF? NO; ADD MORPH? NO; ADD SCAN? NO; ATYPICAL LYMPHOCYTE FLAG 0 (0-99); FRAGMENT RBC FLAG 0 (0-99); HEMATOCRIT 47.3 % (40.0-51.0); HEMOGLOBIN 15.5 g/dL (13.7-17.5); LEFT SHIFT FLG 0 (0-99); LIPEMIA HEMOLYSIS FLAG 80 (0-99); MEAN CELL HEMOGLOBIN 29.6 pg (27.9-34.1); MEAN CELL HEMOGLOBIN CONCENTR. 32.8 g/dL (32.4-36.7); MEAN CELL VOLUME 90.3 fL (81.5-99.8); PLATELET CLUMPS FLAG 10 (0-99); PLATELET COUNT 241 10^3/uL (150-400); RED BLOOD CELL COUNT 5.24 10^6/uL (4.40-6.38); RED CELL DISTRIBUTION WIDTH 14.6 % (11.5-15.2)
[2017-05-07 05:18] LABS: ANION GAP 11 mEq/L (8-16); CALCIUM 8.7 mg/dL (8.5-10.4); CARBON DIOXIDE 31 mEq/l (22-31); CHLORIDE 92 mEq/L (97-110); CREATININE 1.2 mg/dL (0.7-1.3); GLOMERULAR FILTRATION RATE > 60; GLUCOSE 139 mg/dL (70-100); INR 2.43 (0.83-1.16); POTASSIUM 4.1 mEq/L (3.5-5.2); PROTIME(PATIENT) 26.4 SEC (12.0-15.0); SODIUM 134 mEq/L (134-144)
[2017-05-07] MEDS: oxyCODONE IR 5 MG TAB PO PRN ×2 (08:22→14:34)
[2017-05-07] MEDS: glipiZIDE 5 MG TAB PO SCH (08:25)
[2017-05-07] MEDS: SENNOSIDES/DOCUSATE SODIUM TAB PO SCH (08:43)
[2017-05-07] MEDS: cefTRIAXone 2 GM in D5W 50 ML IV SCH (09:04)
--- NOTE | 2017-05-07 10:06 | ASMTCMCOM ---
CM Note CM Note Notes: Spoke w/MD, pt will need 5-7 more days IV abx. CM spoke w/pt and would like to do it at home. [employer] notified and will review benefits, CM w/f. DC Plan: Home Infusion Date Signed: 05/07/2017 10:06 AM Electronically Signed By:Keke Gillette RN
--- NOTE | 2017-05-07 11:08 | PCMIDPN ---
Assessment/Plan: 1. Left lower extremity cellulitis with evidence of myositis on MRI without necrotizing fasciitis: The patient is desperate to go home today. He does not want to stay any longer given severe insomnia with this hospitalization. I am okay with that. I am concerned that a peripheral IV will not last, and will potentially fall out over the weekend. Would prefer a PICC line, and the patient is agreeable to this. He will follow up with Dr. Chicas, WednesdayMay 11 at 10:30 a.m. in the morning. Of note, have asked the patient to keep his left lower extremity elevated while he is at home, and not to walk around barefoot, ever! Subjective: Anxious to go home. Tells me he is not sleeping. Tells me that his left lower extremity feels much better with less pain. Constipated. Objective: Ceftriaxone 2 g IV daily Afebrile Vital Signs Temp Pulse Resp BP Pulse Ox 36.4 C 59 L 18 157/90 H 93 05/07/17 07:30 05/07/17 07:30 05/07/17 07:30 05/07/17 07:30 05/07/17 07:30 Laboratory Results 05/07/17 00:45 05/07/17 00:45 05/06/17 05/07/17 05/08/17 05:59 05:59 05:59 Intake Total 250 300 Output Total 1600 Balance 250 -1300 ESR 7 MM/HR (0-20) 05/03/17 21:35 C-Reactive Protein 67.7 mg/L (<10.0) H 05/03/17 21:35 - Physical Exam General Appearance: no apparent distress, obese EENT: pharynx normal, No thrush Respiratory: lungs clear Extremities: other (Left lower extremity with swelling compared to the right. Pretibial area and dorsum of the foot notable for beet red erythema, that is dusky year in nature compared to yesterday according to the patient. The erythema is receding inside demarcated margins. The area pretibially is tender , but no bullae or hypesthesia.) ICD10 Worksheet Patient Problems: Problems Problem Status Onset Cellulitis of left lower leg Acute Atrial fibrillation Acute Dehydration Acute Elevated troponin Acute Hyponatremia Acute Renal failure Acute
[2017-05-07] MEDS ORDERED: ALTEPLASE 2 MG VIAL IVP PRN (11:10)
--- NOTE | 2017-05-07 11:12 | PDIAF ---
- Diagnosis Diagnosis: Left lower extremity cellulitis/myositis Code Status: Full Code - Medication Management Discharge Medications: Medications to Continue on Transfer Febuxostat [ULORIC] 40 mg PO DAILY@182901/02/15 [Last Taken 05/03/17] Linagliptin [Tradjenta] 5 mg PO DAILY@182901/02/15 [Last Taken 05/03/17] glipiZIDE [Glucotrol 5 mg] 10 mg PO BIDMEAL 01/02/15 [Last Taken 05/03/17 18:30] Tamsulosin HCl [Flomax 0.4 MG (*)] 0.4 mg PO DAILY@182905/21/16 [Last Taken ] FENOFIBRATE 160 mg PO DAILY@182911/22/16 [Last Taken 05/03/17] LORazepam [Ativan (*)] 1 mg PO HS PRN 11/22/16 [Last Taken 1 Week Ago ~04/27/17] Aspirin [Aspirin 325 mg (*)] 325 mg PO DAILY@182905/04/17 [Last Taken 05/03/17] Atorvastatin Calcium [Lipitor 10 mg (*)] 10 mg PO DAILY@182905/04/17 [Last Taken 05/03/17] Fluocinonide 0.05% [Lidex 0.05% Cream] 1 kristi TP DAILY@182905/04/17 [Last Taken 05/03/17] Metoprolol Succinate Xr [Toprol Xl 100 mg (*)] 100 mg PO DAILY@182905/04/17 [ Last Taken 05/03/17] Potassium Cl [Klor-Con 10 meq (RX)] 10 meq PO DAILY@182905/04/17 [Last Taken ] Warfarin Sodium [Coumadin 2.5MG (*)] 2.5 mg PO Q2D@182905/04/17 [Last Taken ] Warfarin Sodium [Coumadin 5MG (*)] 5 mg PO Q2D@182905/04/17 [Last Taken ] amLODIPine BESYLATE [Norvasc 5 mg (*)] 5 mg PO DAILY@182905/04/17 [Last Taken 05/03/17] predniSONE 20 mg PO DAILY PRN 05/04/17 [Last Taken 05/02/17] Acetaminophen [Tylenol 325mg (*)] 650 mg PO Q4HRS PRN tab 05/07/17 [Last Taken Unknown] cefTRIAXone [Rocephin] 2 gm IV DAILY vial 05/07/17 [Last Taken Unknown] oxyCODONE IR [Oxycodone Ir (*)] 5 - 10 mg PO Q4HRS PRN #40 tab 05/07/17 [Last Taken Unknown] [employer]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 PICC Care - Routine: Yes - Orders Diet Recommendation: sodium restricted, low fat, ADA 2000 consistent carb Diet Texture: Regular Texture Diet - Follow Up Care Current Providers and Referrals: Kimberly Moore MD [Primary Care Provider] - As per Instructions Henna Chicas MD [Medical Doctor] - (Patient has appointment with Dr. Chicas WednesdayMay 11 at 10:30 a.m. at the [facility] for Infectious Diseases. )
--- NOTE | 2017-05-07 11:13 | ECHO ---
[email or web address] [address] [address] Main: [phone] Fax: Transthoracic Echocardiogram Name: SYLVIA SHEFFIELD MR#: [id number] Study Date: 05/07/2017 Study Time: 09:58 AM Date of : 1950 Age: 66 year(s) Height: 182.9 cm (72 in.) Weight: 131.54 kg (290 lb.) BSA: 2.49 m2 Gender: Male Examination: Echo Indication: peripheral edema, lft or rt ht dz? ?pul HTN? Image Quality: Technically Difficult Contrast: Requested by: Sharath Masters BP: 157 mmHg/90 mmHg Heart Rate: Rhythm: Normal sinus rhythm Indication: peripheral edema, lft or rt ht dz? ?pul HTN? Procedure Staff Research Instrumentation Technician: Holli Cavanaugh Physician: Blaine Alves Requesting Provider: Conclusions: No pericardial effusion. Concentric left ventricular hypertrophy. Ejection fraction 77%. Mild aortic valve calcification with mean gradient of 12 mm of mercury. Right ventricular systolic pressure is 36 mm of mercury. Measurements: Chambers Valvular Assessment AV/MV Valvular Assessment TV/PV Normal Normal Normal Name Value Range Name Value Range Name Value Range Ao Jacey (MM): 3.3 cm (2.2 cm-3.7 AV Vmax: 2.20 m/s (1 m/s-1.7 TR Vmax: 2.54 mm/s ( - ) cm) m/s) TR PGmax: 26 mmHg ( - ) IVSd (2D): 1.0 cm (0.6 cm-1.1 AV maxP mmHg ( - ) syst. PAP: 36 mmHg ( - ) cm) AV meanP mmHg ( - ) PV Vmax: 0.93 m/s (0.6 m/s-0.9 LVDd (2D): 5.3 cm (4.2 cm-5.9 LVOT Vmax: 1.24 m/s (0.7 m/s-1.1 m/s) cm) m/s) PV PGmax: 3 mmHg ( - ) LVDs (2D): 2.8 cm (2.1 cm-4 ALYSHA (Vmax): 2.1 cm2 ( - ) cm) ALYSHA (VTI): 2.3 cm ( - ) LVPWd (2D): 1.2 cm (0.6 cm-1 MV E Vmax: 1.09 m/s ( - ) cm) MV A Vmax: 1.05 m/s ( - ) LVOTd 2.2 cm 2.2 cm mm MV E/A: 1.04 ( - ) LVEF (2D): 77 (>=54 %) RVDd(2D): 3.7 cm (1.9 cm-3.8 cmmm) Continued Measurements: Chambers Valvular Assessment AV/MV Valvular Assessment TV/PV Name Value Name Value Name Value LADs Lon.5 cm MV DecTime: 232 m/s CVP (est.): 10 mmHg LA Area: 25.1 cm2 MV E/E' Septal: 14.30 RA Area: 13.4 cm2 Patient: SYLVIA SHEFFIELD Study Date: 05/07/2017 Page 1 of 2 09:58 AM Additional Vessels Name Value Ao Ascendin.6 cm Findings: Left Ventricle: Normal size left ventricle. Mild concentric LV hypertrophy. Normal global systolic LV function. EF is 77 %. No regional wall motion abnormality. Normal diastolic LV function. Right Ventricle: Normal size right ventricle. Normal RV function. Left Atrium: The left atrium is normal in size. Right Atrium: The right atrium is normal in size. Mitral Valve: The mitral valve is normal in appearance. There is no significant mitral valve regurgitation. No mitral stenosis is present. Aortic Valve: Aortic valve is not well visualized. Mild aortic cusp calcification is noted. Mean aortic valve gradient 12. Trivial calcific aortic valve stenosis. There is no aortic valve regurgitation. Tricuspid Valve: The tricuspid valve appears normal. Trivial to mild tricuspid valve regurgitation. The pulmonary artery pressure is mildly increased. Right ventricular systolic pressure measures 36mmHg. Pulmonic Valve: Pulmonary valve not well visualized. There is no pulmonic regurgitation seen. Aorta: Normal size aortic root measuring 3.3 cm. Normal size ascending aorta measuring 3.6 cm. IVC: The IVC is dilated. There is greater gloria 50% respiratory excursion. Pericardium: Trace anterior pericardial effusion versus fat pad. (No Signature Object) Patient: SYLVIA SHEFFIELD Study Date: 05/07/2017 Page 2 of 2 09:58 AM [id number]
[2017-05-07 11:26] VITALS: O2SAT 92
[2017-05-07 15:14] VITALS: BP 130/76; PULSE 65; TEMP 98.2
--- NOTE | 2017-05-07 15:36 | PDDCSUM ---
Discharge Summary Discharge Summary: DISCHARGE DIAGNOSES: -acute cellulitis and myositis of the left calf and foot without abscess or open wound -diabetic foot infection -diabetes mellitus type 2 -chronic bilateral leg edema with chronic stasis dermatitis -mild pulmonary hypertension, 36 mm, presumed related to obesity induced disordered breathing, concern for sleep apnea CONSULTANTS: Dr. Henna Chicas of infectious disease PROCEDURES: MRI of left leg and foot Echocardiogram HOSPITAL COURSE SUMMARY: This patient came in with fevers and a painful swollen left leg and foot with a history of diabetes and chronically swollen legs. On initial assessment he had obvious cellulitis but as he progressed he had more extensive swelling pain and discoloration of his leg than anticipated. An MRI was done that showed evidence of some myositis but no osteomyelitis, necrosis, or abscess. He was felt to most likely have strep infection. He was treated with initially vancomycin but changed to Rocephin and he has continued to do well with notable improvement in symptoms and appearance of the legs on a daily basis. His fevers have all resolved. There have been no signs of sepsis or other complications. At this point he is stable for discharge with ongoing outpatient IV therapy and this will be done either in the home setting or at the outpatient infusion center here at the hospital, with final case management plans pending. In assessing the patient's situation overall it is clear that he has diabetes which leaves him at risk, but the location of this infection was suggestive of a stasis dermatitis related infection of the leg as well as diabetic foot infection. He does have chronic swelling in does indeed have some mild chronic stasis pigmentation of both legs. There was some acute stasis dermatitis of the infected left leg as well. In reviewing this he does admit to some chronic swelling but his never had a specific diagnosis for cause of this. He is quite inactive but does not suffer from dyspnea that he is aware. He is fairly obese and has had numerous attempts at trying to lose weight including numerous attempts at diet programs but they have not worked. He is not aware of specific symptoms that would suggest sleep apnea but he lives alone. Because of concern about possible sleep disordered or other obesity related breathing problems or other causes of his edema, he had an echocardiogram which showed normal LV function, normal valve anatomy and function, and mild pulmonary hypertension at 36 again consistent with sleep apnea and/or obesity related hypoventilation syndrome. I reviewed the implications in detail with the patient and recommended that he follow up with his primary care physician for ongoing attempts at weight loss, as well as sleep apnea testing. In the end if he is unable to accomplish significant weight loss, his clinical picture with diabetes, a diabetic foot infection, stasis dermatitis and pulmonary hypertension would probably warrant consideration of bariatric surgery. PENDING TEST RESULTS: None MEDICATION CHANGES: IV Rocephin 2 g daily by home nursing administration for anticipated 5-7 days PE on discharge Oxycodone number 40 tablets, 1-2 every 4 hr as needed for pain FOLLOW-UP PLAN: Home nursing care is arranged for his IV and to follow his leg He will see Dr. Chicas in [facility] within the week Also follow up with Dr. Moore his primary care physician Greater than 35 minutes bedside and care coordination time today
--- NOTE | 2017-05-07 16:36 | ASMTCMCOM ---
CM Note CM Note Notes: Spoke w/RN and pt, he has changed his mind about home infusion. He decided he could not financially to copay, CM notified MD and PEDRO, pt is now scheduled for out pt infusion at 11:30 daily until May 15. MYRNA notified Andie at [facility] and Raisa at [facility]. DC Plan: Outpt Infusion Date Signed: 05/07/2017 04:35 PM Electronically Signed By:Keke Gillette RN
[2017-05-07] MEDS ORDERED: WARFARIN SODIUM 2.5 MG TAB PO SCH (18:30)
--- NOTE | 2017-05-09 15:55 | ASDISCHSUM ---
Discharge Information Plan Status:Home with No Needs Medically Cleared to Leave: Discharge Date:05/07/2017 05:25 PM CM D/C Disposition:Home, Routine, Self-Care ADT D/C Disposition:[id number] Projected Discharge Date:05/07/2017 03:00 PM Transportation at D/C:Self Discharge Delay Reason: Follow-Up Date:05/07/2017 03:00 PM Discharge Slot: Final Diagnosis: Placement Information Referral Type:Home Infusion Referral ID:[id number] Provider Name: Address 1: Phone Number: Address 2: Fax Number: City: [facility] Factors: State: Patient Contact Information Contact Name:GERARDO Relationship: Address: Work Phone: [facility] Alternate Phone: [facility] Code:[place] Email: Financial Information Financial Class: Primary Plan Desc:MEDICARE INPATIENT Primary Plan Number:[id number] Secondary Plan Desc:MEDICAID [place] Secondary Plan Number:[id number] Assessment Information [facility] Initial CM Assessment Living Arrangements What is your living Answers: Alone arrangement? Who do you live with? Type Of Residence What kind of residence do Answers: House you live in? Discharge Plan Comments Coordination Status Comments Notes: Patient is a 66yo single male with diabetes experiencing his first diabetic foot infection. Patient normally takes good care of his feet but has not checked his blood sugar in several weeks. No therapies have been ordered yet. Patient is single and lives alone. D/C needs unclear at this time. CM will follow. Date Signed: 05/04/2017 10:31 AM Electronically Signed By:Snehal Ordaz LCSW [facility] CM Progress Note CM Note CM Note Notes: Spoke w/, pt will need 5-7 more days IV abx. CM spoke w/pt and would like to do it at home. [place] notified and will review benefits, CM w/f. DC Plan: Home Infusion Date Signed: 05/07/2017 10:06 AM Electronically Signed By:Keke Gillette RN [facility] CM Progress Note CM Note CM Note Notes: Spoke w/RN and pt, he has changed his mind about home infusion. He decided he could not financially to copay, CM notified MD and ID, pt is now scheduled for out pt infusion at 11:30 daily until May 15. CM notified Andie at [facility] and Raisa at [facility]. DC Plan: Outpt Infusion Date Signed: 05/07/2017 04:35 PM Electronically Signed By:Keke Gillette RN Intervention Information Intervention Type:*DAILEY-Signed Date of Service:05/04/2017 10:01 AM Patient Type:Observation Staff Member:Jie García Hours: Discipline: Severity: Comment:
== END 2017-05-07 17:25 | disposition home health service (06) | DRG 603 ==
LOC: F3E 05-04 00:03 → OBSVTOIN 05-04 18:05
PROVIDERS: ADMIT Student in an Organized Health Care Education/Training Program; ATTEND Student in an Organized Health Care Education/Training Program
PROC: 02HV33Z Insertion of Infusion Device into Superior Vena Cava, Percutaneous Approach (ICD-10-PCS; principal; 2017-05-07)
DX: L03.116 Cellulitis of left lower limb (principal); M60.9 Myositis, unspecified; I87.2 Venous insufficiency (chronic) (peripheral); R59.1 Generalized enlarged lymph nodes; E11.22 Type 2 diabetes mellitus with diabetic chronic kidney disease; I12.9 Hypertensive chronic kidney disease with stage 1 through stage 4 chronic kidney disease, or unspecified chronic kidney disease; N18.9 Chronic kidney disease, unspecified; I48.91 Unspecified atrial fibrillation; Z79.01 Long term (current) use of anticoagulants; M10.9 Gout, unspecified; E66.01 Morbid (severe) obesity due to excess calories; Z68.41 Body mass index [BMI] 40.0-44.9, adult; I27.20 Pulmonary hypertension, unspecified
CPT/HCPCS: 96374; A9585; C1751; G0008; G0378; J0696; J1170; J1940; J2405; J3370

== ENCOUNTER 2017-05-07 23:42 | Observation (INO) | payer OTHER, MEDICAID ==
[2017-05-07] MEDS ORDERED: IOPAMIDOL (ISOVUE 370) 100 ML BTL IV ONE (23:57)
--- NOTE | 2017-05-08 00:12 | EDPHY ---
H & P Time Seen by Provider: 05/07/17 23:51 HPI/ROS: Chief Complaint: Stroke alert HPI: 66-year-old male who was discharged from this hospital earlier this evening after treatment for a cellulitis. Patient has a history of atrial fibrillation, is on Coumadin. At 11:10 p.m. tonight he was awake and noted the onset of numbness on the right-hand side with some right-sided weakness. EMS called. On arrival they noted a right-sided facial weakness and activated a stroke alert. Patient now states that he is feeling improved but is still having some tingling on the right side of his face. No chest pain or shortness of breath. No palpitations. Denies headache. Does not a history of similar episodes in the past. EMS got a blood sugar of 198. ROS: 10 point Review of Systems is negative except as noted in the HPI. PMH: Atrial fibrillation on Coumadin, diabetes, cellulitis Social History: No smoking Family History: non-contributory Physical Exam: Gen: Awake, Alert, No Distress HEENT: Nose: no rhinorrhea Eyes: PERRLA, EOMI Mouth: Moist mucosa Neck: Supple, no JVD Chest: nontender, lungs clear to auscultation Heart: S1, S2 normal, no murmur Abd: Soft, non-tender, no guarding Back: no CVA tenderness, no midline tenderness Ext: no edema, non-tender Skin: no rash Neuro: See NIH stroke exam - Medical/Surgical History Hx Asthma: No Hx Chronic Respiratory Disease: No Hx Diabetes: Yes Hx Cardiac Disease: Yes Hx Renal Disease: No Hx Cirrhosis: No Hx Alcoholism: No Hx HIV/AIDS: No Hx Splenectomy or Spleen Trauma: No Other PMH: DMII, spinal stenosis, sciatica, HTN, high cholesterol, gout - Social History Smoking Status: Never smoked Constitutional: Initial Vital Signs Temperature (C) 36.9 C 05/07/17 23:42 Heart Rate 65 05/07/17 23:42 Respiratory Rate 22 H 05/07/17 23:42 Blood Pressure 147/74 H 05/07/17 23:42 O2 Sat (%) 92 05/07/17 23:42 O2 Delivery Mode Room Air Allergies/Adverse Reactions: No Known Allergies Allergy (Verified 05/03/17 21:13) Home Medications: Medication Instructions Recorded Febuxostat [ULORIC] 40 mg PO DAILY@1830 07/29/15 Linagliptin [Tradjenta] 5 mg PO DAILY@182901/02/15 glipiZIDE [Glucotrol 5 mg] 10 mg PO BIDMEAL 01/02/15 Tamsulosin HCl [Flomax 0.4 MG (*)] 0.4 mg PO DAILY@182905/21/16 FENOFIBRATE 160 mg PO DAILY@182911/22/16 LORazepam [Ativan (*)] 1 mg PO HS PRN 11/22/16 Aspirin [Aspirin 325 mg (*)] 325 mg PO DAILY@182905/04/17 Atorvastatin Calcium [Lipitor 10 10 mg PO DAILY@182905/04/17 mg (*)] Fluocinonide 0.05% [Lidex 0.05% 1 kristi TP DAILY@182905/04/17 Cream] Metoprolol Succinate Xr [Toprol Xl 100 mg PO DAILY@182905/04/17 100 mg (*)] Potassium Cl [Klor-Con 10 meq (RX)] 10 meq PO DAILY@182905/04/17 Warfarin Sodium [Coumadin 2.5MG 2.5 mg PO Q2D@182905/04/17 (*)] Warfarin Sodium [Coumadin 5MG (*)] 5 mg PO Q2D@182905/04/17 amLODIPine BESYLATE [Norvasc 5 mg 5 mg PO DAILY@182905/04/17 (*)] predniSONE 20 mg PO DAILY PRN 05/04/17 Acetaminophen [Tylenol 325mg (*)] 650 mg PO Q4HRS PRN tab 05/07/17 cefTRIAXone [Rocephin] 2 gm IV DAILY vial 05/07/17 oxyCODONE IR [Oxycodone Ir (*)] 5 - 10 mg PO Q4HRS PRN #40 tab 05/07/17 Medical Decision Making - Diagnostics Imaging Results: Imaging Impressions Head CT 05/07/17 23:52 Impression: Mild atrophy and probable small vessel disease are suspected. No acute cortical ischemia is identified. Nothing acute is identified. Results called and discussed with Shan Reynolds MD on 05/08/2017 0:10 Head CTA 05/07/17 23:52 Impression: 1. Dense calcification of the distal vertebral arteries bilaterally which may be hemodynamically significant. 2. No significant stenosis is seen in the anterior circulation to explain the patient's symptoms. CT Angiography of the Head With Attention to the [place] Reason for examination: Right-sided weakness; evaluate for arterial occlusive disease. Technique: A spiral acquisition was performed from the base of the brain to the vertex during rapid intravenous administration of 90 mL of Isovue-370. This contrast volume was utilized for evaluation of the neck and head. Axial images are obtained at 0.6 mm thickness and the examination is reviewed on the workstation in multiple window and level settings. Sagittal and coronal reformats are performed and three-dimensional reformations are performed by the radiologist on the workstation. Dose reduction techniques were utilized. Findings: There is excellent arterial opacification. Calcified plaque formation is seen involving the distal internal carotid arteries bilaterally. Otherwise the great vessels at the base of the brain are normal in appearance. The anterior and middle cerebral arteries appear normal. The [place] is intact with both anterior and posterior communicating arteries identified. The basilar artery as well as posterior cerebral arteries are normal. Again noted are calcifications involving the distal vertebral arteries bilaterally. No other regions of stenosis are identified. No hemorrhages are seen and no vascular malformations are identified. No areas of abnormal perfusion are identified and there are no findings to suggest cortical ischemia. Impression: CT angiography of the head with attention to the great vessels of the [place] demonstrates minimal plaque formation in the anterior circulation with no stenosis identified. Results called and discussed with Shan Reynolds MD on 05/08/2017 at 0:28 Note: All stenoses are calculated using NASCET Criteria. Neck CTA 05/07/17 23:52 Impression: 1. Dense calcification of the distal vertebral arteries bilaterally which may be hemodynamically significant. 2. No significant stenosis is seen in the anterior circulation to explain the patient's symptoms. CT Angiography of the Head With Attention to the [place] Reason for examination: Right-sided weakness; evaluate for arterial occlusive disease. Technique: A spiral acquisition was performed from the base of the brain to the vertex during rapid intravenous administration of 90 mL of Isovue-370. This contrast volume was utilized for evaluation of the neck and head. Axial images are obtained at 0.6 mm thickness and the examination is reviewed on the workstation in multiple window and level settings. Sagittal and coronal reformats are performed and three-dimensional reformations are performed by the radiologist on the workstation. Dose reduction techniques were utilized. Findings: There is excellent arterial opacification. Calcified plaque formation is seen involving the distal internal carotid arteries bilaterally. Otherwise the great vessels at the base of the brain are normal in appearance. The anterior and middle cerebral arteries appear normal. The [place] is intact with both anterior and posterior communicating arteries identified. The basilar artery as well as posterior cerebral arteries are normal. Again noted are calcifications involving the distal vertebral arteries bilaterally. No other regions of stenosis are identified. No hemorrhages are seen and no vascular malformations are identified. No areas of abnormal perfusion are identified and there are no findings to suggest cortical ischemia. Impression: CT angiography of the head with attention to the great vessels of the [place] demonstrates minimal plaque formation in the anterior circulation with no stenosis identified. Results called and discussed with Shan Reynolds MD on 05/08/2017 at 0:28 Note: All stenoses are calculated using NASCET Criteria. Imaging: Discussed imaging studies w/ call or contact centre coach Radiologist ED Course/Re-evaluation: I have reviewed the patient's medical records. Just under 24 hr ago he had an INR of 2.4. He is now presenting with stroke-like symptoms with an NIH score of 1. Patient is in CT scan. I have discussed with Dr. Mott, [facility] Neurology. She agrees that given his INR from this morning he is not a candidate for tPA. If there is a large anterior all clot on his CT All Moe might be a candidate for thrombectomy however this is unlikely given his symptoms at this time. If there is no large thrombus at this time she has with plan for admission here for further workup and evaluation. CT and CT a noted for some areas of plaque but no acute thrombus. The patient' s facial droop has improved. No indications for tPA or transfer to [facility] at this time. I have discussed with the hospitalist cough month Dr. Estrella. Will admit to the neuro floor for further evaluation. - Data Points Laboratory Results: 05/08/17 05/08/17 05/08/17 00:25 00:25 00:25 WBC Pending RBC Pending Hgb Pending Hct Pending MCV Pending MCH Pending MCHC Pending RDW Pending Plt Count Pending MPV Pending Neut % (Auto) Pending Lymph % (Auto) Pending [place] % (Auto) Pending Eos % (Auto) Pending Baso % (Auto) Pending Nucleat RBC Rel Count Pending Absolute Neuts (auto) Pending Absolute Lymphs (auto) Pending Absolute Monos (auto) Pending Absolute Eos (auto) Pending Absolute Basos (auto) Pending Absolute Nucleated RBC Pending Immature Gran % Pending Immature Gran # Pending PT Pending INR Pending Sodium Pending Potassium Pending Chloride Pending Carbon Dioxide Pending Anion Gap Pending BUN Pending Creatinine Pending Estimated GFR Pending Glucose Pending Calcium Pending Departure - Departure Disposition: [facility] Inpatient Acute Clinical Impression: Transient cerebral ischemia Condition: Fair Referrals: Patient,NotPresent [Primary Care Provider] - As per Instructions NIH Stroke Scale Date of Exam: 05/07/17 Time of Exam: 23:43 Level of Consciousness: Alert LOC Questions: Answers Both LOC Commands: Performs Both Correctly Best Gaze: Normal Visual: No Visual Loss Facial Palsy: Minor Paralysis Motor Arm-Left: No Drift Motor Arm-Right: No Drift Motor Leg-Left: No Drift Motor Leg-Right: No Drift Limb Ataxis: Absent Sensory: Normal Best Language: No Aphasia Dysarthria: Normal Extinction and Inattention (Neglect): No Abnormality NIH Scale Score: 1
--- NOTE | 2017-05-08 00:22 | CPEKG ---
Heart Rate: 63 RR Interval: 952 P-R Interval: 184 QRSD Interval: 126 QT Interval: 436 QTC Interval: 447 P [place]: 43 QRS [place]: -16 T Wave [place]: 41 EKG Severity - ABNORMAL ECG - EKG Impression: SINUS RHYTHM EKG Impression: PROBABLE LEFT ATRIAL ABNORMALITY EKG Impression: IVCD, CONSIDER ATYPICAL RBBB Electronically Signed By: Shan Reynolds 08-May-2017 07:19:49
[2017-05-08 00:40] LABS: INR 2.29 (0.83-1.16); PROTIME(PATIENT) 25.2 SEC (12.0-15.0)
[2017-05-08 00:53] LABS: % IMMATURE GRANULYOCYTES 0.8 % (0.0-1.1); ABSOLUTE IMMATURE GRANULOCYTES 0.09 10^3/uL (0.00-0.10); ADD DIFF? NO; ADD MORPH? NO; ADD SCAN? NO; ATYPICAL LYMPHOCYTE FLAG 0 (0-99); FRAGMENT RBC FLAG 0 (0-99); HEMATOCRIT 44.5 % (40.0-51.0); HEMOGLOBIN 15.2 g/dL (13.7-17.5); LEFT SHIFT FLG 0 (0-99); LIPEMIA HEMOLYSIS FLAG 90 (0-99); MEAN CELL HEMOGLOBIN 30.7 pg (27.9-34.1); MEAN CELL HEMOGLOBIN CONCENTR. 34.2 g/dL (32.4-36.7); MEAN CELL VOLUME 89.9 fL (81.5-99.8); MEAN PLATELET VOLUME 8.8 fL (8.7-11.7); PLATELET CLUMPS FLAG 0 (0-99); PLATELET COUNT 266 10^3/uL (150-400); RED BLOOD CELL COUNT 4.95 10^6/uL (4.40-6.38); RED CELL DISTRIBUTION WIDTH 14.7 % (11.5-15.2)
[2017-05-08] MEDS ORDERED: ACETAMINOPHEN 325 MG TAB PO PRN (00:54)
[2017-05-08] MEDS ORDERED: ONDANSETRON 4 MG/2 ML VIAL IVP PRN (00:54)
[2017-05-08 00:55] LABS: ANION GAP 11 mEq/L (8-16); CALCIUM 8.7 mg/dL (8.5-10.4); CARBON DIOXIDE 27 mEq/l (22-31); CHLORIDE 96 mEq/L (97-110); CREATININE 1.2 mg/dL (0.7-1.3); GLOMERULAR FILTRATION RATE > 60; GLUCOSE 127 mg/dL (70-100); POTASSIUM 3.3 mEq/L (3.5-5.2); SODIUM 134 mEq/L (134-144)
[2017-05-08] MEDS ORDERED: LABETALOL HCL 5 MG/ML 20 ML MDV IVP PRN (00:57)
[2017-05-08] MEDS ORDERED: PROTOCOL MAGNESIUM 1 DOSE IV PRN (01:03)
[2017-05-08] MEDS ORDERED: PROTOCOL POTASSIUM 1 DOSE MISC PRN (01:03)
[2017-05-08] MEDS: HYDROCODONE/APAP 5/325 TAB PO PRN ×2 (03:16→08:32)
--- NOTE | 2017-05-08 05:08 | GHP ---
[f rep st] HISTORY AND PHYSICAL DATE OF ADMISSION: 05/08/2017 SOURCE: Patient provides history, appears reliable. He is a fair historian. His EMR was reviewed, particularly recent hospitalization where patient was discharged just yesterday. CHIEF COMPLAINT: Right facial droop and right-sided weakness. HISTORY OF PRESENT ILLNESS: This is a very pleasant 66-year-old gentleman with past medical history significant for diabetes type 2, atrial fibrillation, on Coumadin, recent hospitalization for left lo wer extremity cellulitis and myositis due to a diabetic foot ulcer, benign essential hypertension, hy perlipidemia, morbid obesity with BMI greater than 40, gout, chronic pain with chronic opiate depende nce, and BPH who presents to the emergency department today with complaints of sudden onset of right- sided numbness, tingling, weakness, and facial tingling. Patient's symptoms started approximately 11 :10 p.m. He called EMS and patient had apparent right-sided facial droop and right-sided weakness. Upon arrival to the emergency department, patient's right-sided weakness had improved, but he continu ed to complain of some numbness, tingling in his fingers and had a persistent mild facial droop with continued numbness, tingling on the right side. Patient denies any headache. No numbness, tingling. No previous history of TIA or stroke. Patient has been therapeutic on his Coumadin and compliant w ith his home medications. Patient was discharged with a PICC line placed for continued IV antibiotic s secondary to his left lower extremity cellulitis and myositis. REVIEW OF SYSTEMS: GENERAL: Patient denies any fevers chills. SKIN: No rashes or new sores. Patie nt with persistent redness in the left lower extremity, which has improved significantly. ENT: Bee ent denies any nasal congestion, sore throat. EYES: Patient denies any acute changes in vision or o cular pain. CV: No chest pain or palpitations. RESPIRATORY: No shortness of breath or cough. GI: Patient denies any nausea, vomiting, abdominal pain, diarrhea. : No dysuria or hematuria. [facility]OS[facility]: Patient reports left lower extremity pain is persistent, but no myalgias. NEUROLOGIC: Deficits as noted above in HPI. PSYCH: No depression or anxiety. Patient does have claustrophobia and has refused to consider MRI. ALLERGIES: No known drug allergies. HOME MEDICATIONS: 1. Prednisone 5 mg p.o. daily p.r.n. 2. Oxy IR 5-10 mg p.o. q.4 hours p.r.n. for pain. 3. Glipizide 10 mg p.o. twice daily with meals. 4. Rocephin 2 g IV daily. 5. Amlodipine 5 mg p.o. daily at 6:30. 6. Coumadin 2.5 mg every other day at 6:30 alternating with 5 mg. 7. Tamsulosin 0.4 mg p.o. daily 6:30. 8. Klor-Con 10 mEq p.o. daily. 9. Metoprolol succinate XL 100 mg p.o. daily at 6:30. 10. Tradjenta 5 mg p.o. daily at 6:30. 11. Ativan 1 mg p.o. h.s. p.r.n. 12. Fluocinonide 0.05% topically daily at 6:30. 13. Uloric 40 mg p.o. daily at 6:30. 14. Fenofibrate 160 mg p.o. daily at 6:30. 15. Atorvastatin 10 mg p.o. daily in the evening. 16. Aspirin 325 mg p.o. at 6:30. 17. Tylenol 650 mg p.o. q.6 hours for pain. PAST MEDICAL HISTORY: Significant for atrial fibrillation, on Coumadin, rate controlled. Diabetes t ype 2, uncontrolled. Cellulitis, left lower extremity as noted above. Benign essential hypertension , hyperlipidemia, morbid obesity with BMI of 41.6, gout, BPH, chronic lower extremity edema, chronic pain with chronic opiate dependence. PAST SURGICAL HISTORY: Patient denies. FAMILY HISTORY: Father with CAD and atrial fibrillation. SOCIAL HISTORY: Patient lives alone. He does not smoke or drink or do drugs. Has a brother in town who is supportive. CODE STATUS: Full. PHYSICAL EXAMINATION: VITAL SIGNS: Upon arrival to the emergency department, blood pressure 147/74, heart rate 65, respiratory rate 22, O2 saturation 92% on room air with a temperature of 36.9. Current vitals available: Blood pressure 178/94, heart rate is 61, respiratory rate 16, O2 saturatio n 98% on room air, temperature 36.4. GENERAL: No acute distress, pleasant, morbidly obese gentleman is lying quietly in bed. Appears chronically ill and fatigued. HEAD: Normocephalic, atraumatic. EYES: Extraocular muscles are intact. Pupils equal, round, reactive to light bilaterally and symmet júnior. No scleral icterus or conjunctival injection. ENT: Mucous membranes appear moist. No pharyng eal erythema or exudates. NECK: Supple. Trachea midline. CV: Regular rate and rhythm. Slightly distant heart sounds secondary to body habitus. No murmurs, rubs, or gallops are appreciated. No ch est wall tenderness to palpation. RESPIRATORY: Lungs are clear to auscultation bilaterally. No whe ezes, rales, or rhonchi. Patient does have some increased work of breathing when he is attempting to sit up, but none at rest. ABDOMEN: Obese, protuberant, nontender to palpation. No rebound, guardi ng, or masses appreciated. Positive bowel sounds. : No Barone in place. No suprapubic tenderness to palpation. EXTREMITIES: Patient with 1 to 2+ lower extremity pitting edema, more notable on the left with surrounding erythema and cellulitis that is below the marked margins in pen. Patient does have tenderness to palpation of the left lower extremity. Pedal pulses are difficult to ascertain i n setting of edema and pain with palpation. MUSCULOSKELETAL: Patient with some generalized decondit ioning. He does requires a little bit of assistance sitting up. Moves all extremities. NEURO: Paving And Surfacing Labourer nial nerves II through XII intact symmetric bilaterally. Patient is awake, alert, and oriented x4. Sensation is intact to upper and lower extremities. No pronator drift. Bike Shop Manager strength is equal and s ymmetric. Patient with some minimal nasal labial fold flattening on the right compared to the left, but it is very minimal and nearly resolved with cranial nerve testing. PSYCH: Thought process, cont ent and questions are appropriate. He does appear a little bit anxious but he is cooperative. LABORATORY STUDIES: WBC 11.98, DH and DH 15.2 and 44.5, MCV 89.9, platelet count is 266. No bands. Sodium is 134, potassium 3.3, chloride is 96, CO2 is 27, anion gap 11, BUN 19, creatinine is 1.2, GF R estimated greater than 60, glucose 127, calcium 8.7, magnesium 1.7. PT is 25.2, INR is 2.29. IMAGING STUDIES: Chest x-ray image report reviewed myself. Impression is suspect low-grade congesti ve heart failure with fluid overload without [place] pulmonary edema. Airway disease with peribronchia l thickening. No focal pulmonary consolidation. No effusion. CT head without contrast showing mild atrophy and probable small-vessel disease suspected. No acute cortical ischemia identified. Nothing acute. CTA head and neck showing dense calcification of the distal vertebral arteries bilaterally, which may be hemodynamically significant. No significant stenosis seen in the anterior circulation to explain patient's symptoms. CTA head showing calcified plaque formation involving the distal internal carot id arteries bilaterally. Otherwise, great vessels at base of the brain, normal in appearance. Anter ior middle cerebral arteries appear normal. [place] intact. Anterior and posterior communi cating arteries identified. Basilar arteries as well as posterior cerebral arteries normal. No hemo rrhage is seen and no vascular malformations identified. EKG is normal sinus rhythm in the 60s with interventricular conduction delay. There are no acute ST changes. There is QTc measured 447 without any acute changes from comparison EKG on 03/25/2017. Echocardiogram that was obtained on last hospitalization 05/06/2017 shows normal EF. No pericardial effusion. Concentric left ventricular hypertrophy. Ejection fraction 77%. Mild aortic valve calcif ication with mean gradient 12 mmHg. Right ventricular systolic pressure 36 mmHg. ASSESSMENT AND PLAN: A pleasant 66-year-old gentleman with history of diabetes, atrial fibrillation on Coumadin, hypertension, hyperlipidemia, morbid obesity, and chronic pain, who [facility] with complaints of right-sided weakness, right facial droop and weakness. 1. Transient ischemic attack versus CVA. CTA without significant stenosis or occlusive disease. Di d discuss with patient further evaluation including MRI to further elucidate. Patient adamantly refu ses to consider an MRI due to his history of significant claustrophobia. Will consult Neurology in t he morning. Patient is already taking 325 mg aspirin in the evening along with Coumadin on a daily b asis. His INR is therapeutic, greater than 2. Stroke protocol has been initiated. PT, OT, ST will be consulted for full evaluation. I did discuss with the patient significance of improved lifestyle modifications, weight loss, management of his secondary risk factors and their association with impro divina outcomes and to minimize recurrence of neurologic symptoms. 2. Right facial drooping and weakness. This does appear to have improved but still with a slight rem nant. The remainder of neurologic assessment is within normal limits. Plan as above. 3. Cellulitis, left lower extremity. Continue patient's Rocephin 2 g IV q.24 mg. patient does requ sydnie additional 5-7 days of antibiotic therapy and is due to be scheduled with Infectious Disease serv ice on an outpatient basis. He is afebrile at this time. 4. Atrial fibrillation on chronic anticoagulation with Coumadin. We will plan to continue to monito r PT/INR. 5. Diabetes type 2. Further improvement in blood sugar control is recommended to the patient. [place] is not on the formulary here. Most recent A1c in November of this year, 7.4. Will place patient o n a sliding scale AC and HS. 6. Benign essential hypertension. Blood pressures are elevated. Patient is complaining of increase d pain in addition. Given acute neurologic symptoms, permissive hypertension, at this time labetalol is ordered for significantly elevated blood pressures as per protocol. 7. Hyperlipidemia. Plan to resume patient's statin therapy once med rec has been updated. 8. Gout. Patient takes Uloric, not currently on formulary. Resume if patient is able to have someb robert bring it in. 9. Morbid obesity with BMI of 41.6. Lifestyle modifications, weight loss, as noted above were discu ssed with the patient. 10. Benign prostatic hypertrophy. Continue tamsulosin. 11. Chronic pain with chronic opiate dependence. Continue with narcotic therapy. 12. Fluid, electrolyte, nutrition. Patient has passed bedside swallow evaluation. Continue to enco urage oral hydration. Will monitor magnesium and potassium and replace as needed. ADA diet has been ordered. 13. Prophylaxis. SCDs. Currently therapeutic on his INR. CODE STATUS: Full. DISPOSITION: Patient is admitted to observation on the medical floor at this time pending further Ne urology recommendations. /[id number]/MODL
[2017-05-08 05:14] LABS: MAGNESIUM 1.8 mg/dL (1.6-2.3); POTASSIUM 3.7 mEq/L (3.5-5.2)
[2017-05-08] MEDS ORDERED: POTASSIUM CL 10 MEQ TAB PO ONE (05:36)
[2017-05-08] MEDS ORDERED: MAGNESIUM SULF 1 GM/DEXTROSE 100 ML IV ONE (05:45)
[2017-05-08] MEDS ORDERED: ASPIRIN EC 81 MG TAB PO SCH (09:00)
[2017-05-08] MEDS ORDERED: cefTRIAXone 2 GM in D5W 50 ML IV SCH (09:00)
--- NOTE | 2017-05-08 10:38 | HOSPPROG ---
Hospitalist Progress Note Assessment/Plan: Patient is a 66-year-old male who was discharged yesterday and return to the emergency department. There is concern that he had right-sided weakness and right facial droop. Upon arrival to the ER his right sided weakness had improved but continued to complain of some numbness & tingling in his fingers and a persistent mild facial droop. CTA of the head and neck shows a dense calcification of the distal vertebral arteries bilaterally which may be hemodynamically significant. He has no significant stenosis seen in the anterior circulation explain his symptoms the CT of the head shows calcified plaque involving the distal internal carotid arteries bilaterally EKG is in a normal sinus rhythm. He had an echocardiogram on May 06 which showed an EF of 77%. Today is my 1st encounter with the patient. Chart reviewed. * probable TIA. -patient declined MRI due to his claustrophobia. He is on Coumadin with an INR that is therapeutic. -also on aspirin therapy -he wants to go home, symptoms have resolved -will have him f/u w neurology -reviewed via phone w neurology and patient wants to go home today * right facial drooping and weakness -symptoms have resolved * cellulitis left lower extremity -continued Rocephin * atrial fibrillation on chronic anticoagulation -INR therapeutic * diabetes type 2 * benign essential hypertension * hyperlipidemia -recheck lipid panel now * gout * morbid obesity with a BMI of 41 -knows this is impacting his health/motivated to try and lose weight * chronic pain on continuous opiate dependence -home meds resumed *Plan: dc later today Subjective: Bill would like to be discharged soon. Objective: Vital Signs Temp Pulse Resp BP Pulse Ox 36.4 C 55 L 20 135/90 H 93 05/08/17 07:58 05/08/17 07:58 05/08/17 07:58 05/08/17 07:58 05/08/17 08:55 Laboratory Results 05/08/17 04:15 05/07/17 05/08/17 05/09/17 05:59 05:59 05:59 Intake Total 500 Balance 500 PT 25.2 SEC (12.0-15.0) H 05/08/17 00:25 INR 2.29 (0.83-1.16) H 05/08/17 00:25 - Physical Exam Constitutional: not in pain, chronically ill appearing, obese Eyes: PERRL Ears, Nose, Mouth, Throat: hearing normal Cardiovascular: regular rate and rhythym Respiratory: no respiratory distress Skin: warm, other (left lower ext with redness, warmth and swelling) Musculoskeletal: full muscle strength Neurologic: AAOx3, sensation intact bilaterally, CN II-XII Intact, No weakness, No numbness, No pronator drift, No facial droop Psychiatric: interacting appropriately, not anxious, not encephalopathic, thought process linear ICD10 Worksheet Patient Problems: Problems Problem Status Onset Transient cerebral ischemia Acute Atrial fibrillation Acute Cellulitis of left lower leg Acute Dehydration Acute Elevated troponin Acute Hyponatremia Acute Renal failure Acute
[2017-05-08 12:21] VITALS: BP 133/77; PULSE 53; RESP 16; TEMP 97.7; O2SAT 92
[2017-05-08] MEDS ORDERED: oxyCODONE IR 5 MG TAB PO PRN (12:37)
[2017-05-08] MEDS ORDERED: LORazepam 1 MG TAB PO PRN (12:37)
[2017-05-08 13:15] LABS: CHOLESTEROL 120 mg/dL (140-220); CHOLESTEROL/HDL RATIO 2.86 RATIO (1.00-4.97); HIGH DENSITY LIPOPROTEIN 42 mg/dL (40-65); LDL/HDL RATIO 1.36 RATIO (1.00-3.64); LOW DENSITY LIPOPROTEIN 57 mg/dL (80-100); NON-HIGH DENSITY LIPOPROTEIN 78 mg/dL (90-129); TRIGLYCERIDE 108 mg/dL (40-150); VERY LOW DENSITY LIPOPROTEINS 21 mg/dL (8-25)
--- NOTE | 2017-05-08 15:04 | ASMTCMCOM ---
CM Note CM Note Notes: Reviewed chart and discussed with RN. Pt will dc home today and resume daily appointment at [facility] infusion center fro IV ABX. Pt's RN notified 3E to let them know he would be resuming tomorrow and let pt know to arrive at admissions 15 min early. Date Signed: 05/08/2017 03:04 PM Electronically Signed By:Radha Borrero RN
--- NOTE | 2017-05-08 15:35 | GDS ---
[f rep st] DISCHARGE SUMMARY DISCHARGE DIAGNOSES: 1. Concern for transient ischemic attack versus a stroke. 2. Concern for right facial drooping and weakness. 3. Left lower extremity cellulitis. 4. Atrial fibrillation, on chronic anticoagulation. 5. Diabetes type 2. 6. Benign essential hypertension. 7. Hyperlipidemia. 8. Gout. 9. Morbid obesity with a body max index of 41. 10. Chronic pain and continuous opioid dependence. HISTORY OF PRESENT ILLNESS: The patient is a 66-year-old gentleman, who was discharged yesterday and returned to the Emergency Department. He was concerned that he had a stroke because he had some rig ht-sided weakness, and numbness, and a right facial droop. On arrival to the emergency room, his rig ht-sided weakness had improved, but he continued to complain of some numbness and tingling to his fin gers and a persistent mild facial droop. A CTA of the head and neck showed a dense calcification in the distal vertebral arteries bilaterally, which may be hemodynamically significant. He had no signi ficant stenosis seen in the anterior circulation to explain his symptoms. The CT of his head showed calcified plaque involving the distal carotid arteries bilaterally. I reviewed his air sampling and monitoring . He has been in sinus rhythm. He also had an echocardiogram on May 06, which showed an EF of 7 7%. His symptoms completely resolved during my evaluation today. He was very anxious to go home. I explained to the patient I am not clear if he might have had a small stroke versus transient ischemi c attack. He will follow up with Neurology in the outpatient setting. HOSPITAL COURSE: 1. Probable transient ischemic attack. He cannot tolerate MRIs. He said his claustrophobia is out of control. He was very anxious to go home. He is on Coumadin, and his INR is therapeutic. He is a lso on aspirin therapy. The question is if he should be on a different anti-platelet medication. He will make an appointment with Dr. Ragsdale. Dr. Masters and myself explained to the patient the imp ortance of following up with this. 2. Right facial drooping and weakness. This is resolved. I had the patient look at himself in the mirror. He did not see a right facial droop himself. 3. Cellulitis of the left lower extremity. Continue IV antibiotics as scheduled on . 4. Atrial fibrillation. He is on chronic anticoagulation with therapeutic INR. 5. Diabetes type 2. A1c is pending. 6. Benign essential hypertension, stable. 7. Hyperlipidemia. I rechecked his lipid panel. This is stable. 8. Gout. No complaints. 9. Obesity. We discussed his weight and trying to lose weight slowly and exercising to decrease his weight. He is very motivated. He has been working with his primary care provider. 10. Chronic pain. His home maintenance of medications has been resumed. DISCHARGE CONDITION: Stable. Blood pressure is 133/77, heart rate of 52, respiratory rate 16, O2 sa turation on room air 92%, temperature is 36.5 Celsius. MEDICATIONS AT DISCHARGE: Please see the EMR. DISCHARGE INSTRUCTIONS: 1. It is important that he follow up with Dr. Ragsdale to discuss medications and further evaluatio n for TIA. 2. To come to [facility] as scheduled to get his IV antibiotics. 3. Recommending that his brother stay with him for the next few nights. 4. If he has any further stroke symptoms, return to the ER. 5. Get INR checked as he has done. 6. I am recommending an outpatient sleep study, especially due to his morbid obesity. 7. Dr. Moore to follow up with his A1c. /[id number]/MODL
--- NOTE | 2017-05-08 17:43 | ASDISCHSUM ---
Discharge Information Plan Status:IV ABX/Infusion Medically Cleared to Leave: Discharge Date:05/08/2017 03:32 PM CM D/C Disposition:Home, Routine, Self-Care ADT D/C Disposition:Home, Routine, Self-Care Projected Discharge Date:05/08/2017 03:32 PM Transportation at D/C: Discharge Delay Reason: Follow-Up Date:05/08/2017 03:32 PM Discharge Slot: Final Diagnosis: Placement Information Patient Contact Information Contact Name:GERARDO Relationship: Address: Work Phone: City:[place] Alternate Phone: State/[employer] Code:[place] Email: Financial Information Financial Class: Primary Plan Desc:MEDICARE INPATIENT Primary Plan Number:[id number] Secondary Plan Desc:MEDICA[employer] [place] Secondary Plan Number:[id number] Assessment Information [facility] CM Progress Note CM Note CM Note Notes: Reviewed chart and discussed with RN. Pt will dc home today and resume daily appointment at [facility] infusion center fro IV ABX. Pt's RN notified 3E to let them know he would be resuming tomorrow and let pt know to arrive at admissions 15 min early. Date Signed: 05/08/2017 03:04 PM Electronically Signed By:Radha Borrero RN Intervention Information Intervention Type:*Incorrect Registration Date of Service:05/08/2017 12:54 AM Patient Type:Observation Staff Member:CALLIE Dean, Barbara Hours: Discipline: Severity: Comment:
[2017-05-08] MEDS ORDERED: glipiZIDE 5 MG TAB PO SCH (18:00)
[2017-05-08] MEDS ORDERED: ASPIRIN EC 325 MG TAB PO SCH (18:30)
[2017-05-08] MEDS ORDERED: METOPROLOL SUCCINATE XR 100 MG TAB PO SCH (18:30)
[2017-05-08] MEDS ORDERED: ASPIRIN 325 MG TAB PO SCH (18:30)
[2017-05-08] MEDS ORDERED: WARFARIN SODIUM 5 MG TAB PO SCH (18:30)
[2017-05-08] MEDS ORDERED: POTASSIUM CL 10 MEQ TAB PO SCH (18:30)
[2017-05-08] MEDS ORDERED: Febuxostat [Uloric] 40 MG PO SCH (18:30)
[2017-05-08] MEDS ORDERED: ATORVASTATIN CALCIUM 10 MG TAB PO SCH (18:30)
[2017-05-08] MEDS ORDERED: TAMSULOSIN HCL 0.4 MG CAP PO SCH (18:30)
[2017-05-08] MEDS ORDERED: amLODIPine BESYLATE 5 MG TAB PO SCH (18:30)
[2017-05-09] MEDS ORDERED: WARFARIN SODIUM 2.5 MG TAB PO SCH (18:30)
[2017-05-10 01:00] LABS: HEMOGLOBIN A1C 6.9 % (4.0-6.0)
== END 2017-05-08 15:32 | disposition home or self-care (01) ==
LOC: EDUNIT# → INTOOBSV 05-08 00:45 → F3N 05-08 02:00
PROVIDERS: ADMIT Family Medicine; ATTEND Family Medicine
DX: R29.810 Facial weakness (principal); L03.116 Cellulitis of left lower limb; I48.91 Unspecified atrial fibrillation; E11.9 Type 2 diabetes mellitus without complications; E78.5 Hyperlipidemia, unspecified; M10.9 Gout, unspecified; E66.01 Morbid (severe) obesity due to excess calories; G89.29 Other chronic pain; Z79.01 Long term (current) use of anticoagulants; Z68.41 Body mass index [BMI] 40.0-44.9, adult
CPT/HCPCS: 70450; 70496; 70498; 71010; 92523; 92610; 93005; 97161; 97165; G0378; G8978; G8979; G8980; G8987; G8988; G8989; G8996; G8997; G8998; G9162; G9163; G9164; J0696; J3475; Q9967

== ENCOUNTER → 2018-04-18 | Outpatient (CLI) | payer OTHER, MEDICAID | LOC: BHFA 13:30 | PROVIDERS: ATTEND Internal Medicine Cardiovascular Disease | DX: I48.91 Unspecified atrial fibrillation (principal) ==